=== PATIENT | male | born 1955 | race Caucasian/White ===

== ENCOUNTER → 2017-01-29 | Outpatient (CLI) | payer OTHER ==
[~2017-01-29] MED LIST: ALBUTEROL2.5 MG/31 INH; ALEVE220 MG PO; BACTRIM DS TAB1 EACH PO; BYSTOLIC 5 MG5 M1 PO; BYSTOLIC10 MG PO; CIPRO500 MG PO; CIPROFLOXACIN500 M1 PO; COUMADIN 4 MG TA4 M1 PO; CRESTOR40 MG PO; CRESTOR5 MG; FLAGYL500 MG PO; FLOMAX0.4 MG PO; HYDROCHLOROTHIA25 M1 PO; KEFLEX500 MG PO; LISINOPRIL40 MG PO; METOPROLOL SUCC25 M1 PO; NEXIUM 40 MG CA40 M1 PO; NORCO 5-325 TA1 EACH PO; ONDANSETRON HCL4 M2 PO; PERCOCET 5-3251 EACH PO; PHENERGAN 25 MG25 M1 PO; PREDNISONE 20 M20 MG PO; TAMSULOSIN HCL0.4 M1 PO; TOPROL XL50 MG PO; TRAMADOL 50 MG50 MG PO; TRIBENZOR 40-51 EACH PO; TRIBENZOR PO; ZESTRIL2.5 MG; ZOFRAN ODT4 MG PO
== END ==
LOC: ULTRA 10:26
DX: M79.89 Other specified soft tissue disorders (principal); M79.604 Pain in right leg

== ENCOUNTER 2019-02-06 08:09 | Emergency (ER) | payer OTHER ==
[~2019-02-06] VITALS: Ht 188 cm; Wt 117.9 kg
[2019-02-06 08:25] LABS: URINE BILIRUBIN NEGATIVE (Negative); URINE BLOOD 3+ (Negative); URINE COLOR YELLOW; URINE GLUCOSE-RANDOM* NEGATIVE (Negative); URINE KETONES NEGATIVE (Negative); URINE NITRITE-REFLEX NEGATIVE (Negative); URINE PROTEIN (DIPSTICK) 2+ (Negative); URINE SPECIFIC GRAVITY 1.025 (1.005-1.035); URINE UROBILINOGEN 0.2 E.U./dl (0.2-1.0)
[2019-02-06 08:29] LABS: URINE CLARITY HAZY; URINE LEUKOCYTES-REFLEX 2+ (Negative)
[2019-02-06 08:34] LABS: SQUAMOUS None Seen /LPF (0-3); URINE RBC >20 Many /HPF (0-2); URINE WBC-REFLEX >25 Many /HPF (0-5)
[2019-02-06 08:35] LABS: BACTERIA-REFLEX 1-9 Few /HPF (None Seen); CASTS None Seen /LPF (None Seen); CRYSTALS None Seen /LPF (None Seen)
[2019-02-06 09:05] LABS: ABSOLUTE NEUTROPHILS 8.2 thou/uL (1.4-8.2); BASOPHILS 0.5 % (0.0-2.0); EOSINOPHILS 0.6 % (0.0-3.0); HEMATOCRIT 47.3 % (42.0-52.0); HEMOGLOBIN 16.3 gm/dL (14.0-18.0); LYMPHOCYTES 13.5 % (24.0-44.0); MCH 30.4 pg (26.0-34.0); MCHC 34.3 g/dL (28.0-37.0); MCV 88.5 fL (80.0-100.0); PLATELET COUNT 187 thou/uL (150-400); POLYS 79.4 % (36.0-66.0); RBC 5.35 mil/uL (4.50-6.00); RDW 13.9 % (10.5-14.5); WBC 10.4 thou/uL (4.0-11.0)
[2019-02-06 09:19] LABS: CALCIUM 9.1 mg/dL (8.5-10.1); POTASSIUM 4.2 mmol/L (3.5-5.1)
[2019-02-06 09:25] LABS: ALBUMIN 3.2 g/dL (3.4-5.0); DIRECT BILIRUBIN 0.1 mg/dL (<0.1-0.3); TOTAL BILIRUBIN 0.6 mg/dL (<0.1-1.0); TOTAL PROTEIN 6.7 g/dL (6.4-8.2)
[2019-02-06] MEDS ORDERED: CIPROFLOXACIN500 M1 PO (09:39)
[2019-02-06 10:00] VITALS: BP 157/82
== END 2019-02-06 10:01 | disposition home or self-care (01) ==
LOC: ER 08:09
PROVIDERS: Emergency Medicine
DX: N39.0 Urinary tract infection, site not specified (principal); I10 Essential (primary) hypertension; E78.5 Hyperlipidemia, unspecified; Z98.890 Other specified postprocedural states; Z86.711 Personal history of pulmonary embolism; Z88.5 Allergy status to narcotic agent; Z88.0 Allergy status to penicillin; Z90.49 Acquired absence of other specified parts of digestive tract

== ENCOUNTER 2019-02-08 10:14 | Emergency (ER) | payer OTHER ==
[~2019-02-08] VITALS: Ht 188 cm; Wt 120.2 kg
[2019-02-08 10:38] LABS: URINE BILIRUBIN NEGATIVE (Negative); URINE BLOOD 3+ (Negative); URINE CLARITY SL CLOUDY; URINE COLOR YELLOW; URINE GLUCOSE-RANDOM* NEGATIVE (Negative); URINE KETONES NEGATIVE (Negative); URINE NITRITE-REFLEX NEGATIVE (Negative); URINE PROTEIN (DIPSTICK) TRACE (Negative); URINE UROBILINOGEN 0.2 E.U./dl (0.2-1.0)
[2019-02-08 10:40] LABS: ABSOLUTE NEUTROPHILS 6.1 thou/uL (1.4-8.2); BASOPHILS 0.7 % (0.0-2.0); EOSINOPHILS 0.6 % (0.0-3.0); HEMATOCRIT 49.2 % (42.0-52.0); HEMOGLOBIN 16.8 gm/dL (14.0-18.0); LYMPHOCYTES 19.2 % (24.0-44.0); MCH 30.2 pg (26.0-34.0); MCHC 34.1 g/dL (28.0-37.0); MCV 88.8 fL (80.0-100.0); MONOCYTES 6.9 % (1.0-8.0); PLATELET COUNT 229 thou/uL (150-400); POLYS 72.6 % (36.0-66.0); RBC 5.54 mil/uL (4.50-6.00); RDW 14.2 % (10.5-14.5); WBC 8.4 thou/uL (4.0-11.0)
[2019-02-08 10:43] LABS: CALCIUM 9.4 mg/dL (8.5-10.1); CREATININE 1.1 mg/dL (0.7-1.3); POTASSIUM 3.9 mmol/L (3.5-5.1)
[2019-02-08 10:50] LABS: ALBUMIN 3.7 g/dL (3.4-5.0); DIRECT BILIRUBIN 0.2 mg/dL (<0.1-0.3); TOTAL BILIRUBIN 1.2 mg/dL (<0.1-1.0); TOTAL PROTEIN 7.2 g/dL (6.4-8.2)
[2019-02-08 10:51] LABS: URINE LEUKOCYTES-REFLEX 1+ (Negative)
[2019-02-08 10:56] LABS: CASTS None Seen /LPF (None Seen); MUCUS 0-3 Light strn/LPF (None Seen); SQUAMOUS 4-10 Moderate /LPF (0-3); URINE RBC >20 Many /HPF (0-2)
[2019-02-08 10:59] LABS: BACTERIA-REFLEX 1-9 Few /HPF (None Seen)
[2019-02-08 11:00] LABS: CRYSTALS None Seen /LPF (None Seen); WBC CLUMPS Few (None Seen)
[2019-02-08] MEDS ORDERED: NORCO 5-325 TA1 EACH PO (12:07)
[2019-02-08] MEDS ORDERED: KEFLEX500 M1 PO (12:07)
[2019-02-08 12:23] VITALS: BP 144/91
== END 2019-02-08 12:57 | disposition home or self-care (01) ==
LOC: ER 10:14
PROVIDERS: Emergency Medicine
DX: N39.0 Urinary tract infection, site not specified (principal); I10 Essential (primary) hypertension; E78.5 Hyperlipidemia, unspecified; G62.9 Polyneuropathy, unspecified; Z88.0 Allergy status to penicillin; Z88.5 Allergy status to narcotic agent; Z98.890 Other specified postprocedural states; Z90.49 Acquired absence of other specified parts of digestive tract; Z86.711 Personal history of pulmonary embolism

== ENCOUNTER 2019-05-14 15:46 | Inpatient (IN) | payer OTHER ==
[~2019-05-14] VITALS: Ht 188 cm; Wt 117.9 kg
[~2019-05-14 15:46] MED LIST changes: +KEFLEX500 M1 PO
[2019-05-14 16:05] VITALS: BP 118/73
[2019-05-14 16:54] LABS: ABSOLUTE NEUTROPHILS 14.3 thou/uL (1.4-8.2); BASOPHILS 0.4 % (0.0-2.0); EOSINOPHILS 0.1 % (0.0-3.0); HEMATOCRIT 42.4 % (42.0-52.0); HEMOGLOBIN 14.6 gm/dL (14.0-18.0); LYMPHOCYTES 3.1 % (24.0-44.0); MCH 31.6 pg (26.0-34.0); MCHC 34.4 g/dL (28.0-37.0); MCV 91.8 fL (80.0-100.0); MONOCYTES 3.7 % (1.0-8.0); PLATELET COUNT 183 thou/uL (150-400); POLYS 92.7 % (36.0-66.0); RBC 4.62 mil/uL (4.50-6.00); RDW 14.3 % (10.5-14.5); WBC 15.4 thou/uL (4.0-11.0)
[2019-05-14 16:57] LABS: ANION GAP 11 mmol/L (7-16); BUN 16 mg/dL (7-18); CALCIUM 9.2 mg/dL (8.5-10.1); CHLORIDE 98 mmol/L (98-107); CO2 27 mmol/L (21-32); CREATININE 1.3 mg/dL (0.7-1.3); GLUCOSE 152 mg/dL (74-106); POTASSIUM 3.3 mmol/L (3.5-5.1); SODIUM 136 mmol/L (136-145)
[2019-05-14 17:06] LABS: TROPONIN-I <0.06 ng/mL (<0.06)
[2019-05-14 17:44] LABS: URINE BILIRUBIN NEGATIVE (Negative); URINE BLOOD 3+ (Negative); URINE COLOR YELLOW; URINE GLUCOSE-RANDOM* NEGATIVE (Negative); URINE KETONES NEGATIVE (Negative); URINE LEUKOCYTES-REFLEX 1+ (Negative); URINE PROTEIN (DIPSTICK) 1+ (Negative); URINE UROBILINOGEN 0.2 E.U./dl (0.2-1.0)
[2019-05-14 17:45] LABS: URINE CLARITY HAZY
[2019-05-14 17:46] LABS: SQUAMOUS None Seen /LPF (0-3); URINE WBC-REFLEX >25 Many /HPF (0-5)
[2019-05-14 17:47] LABS: BACTERIA-REFLEX 1-9 Few /HPF (None Seen); URINE RBC 3-10 Few /HPF (0-2)
[2019-05-14 17:48] LABS: CRYSTALS None Seen /LPF (None Seen)
[2019-05-14] MEDS ORDERED: OLMESARTAN-HCT1 EAC2 PO (18:31)
[2019-05-14] MEDS ORDERED: AMLODIPINE BESY10 MG PO (18:31)
[2019-05-14] MEDS ORDERED: XARELTO15 MG PO (18:32)
[2019-05-14 19:18] VITALS: BP 112/72; BP 96/38
[2019-05-14 20:27] VITALS: BP 96/38
[2019-05-14 21:52] VITALS: BP 128/58
--- NOTE | 2019-05-14 21:56 | NUR ---
VASCULAR ACCESS NOTE ORDER FOR PICC LINE. PATIENT CONSENTED FOR PROCEDURE. DL PICC PLACED TO R BASILIC VEIN PER HOSPITAL P&P R BASILIC VEIN WIDELY PATENT WITH U.S VISUALIZATION. LIDOCAINE 3ML OF 1% GIVEN SUB Q. VEIN ACCESSED WITH ONE STICK. GUIDEWIRE ADVANCED EASILY. VEIN DILATED. GUIDEWIRE REMOVED INTACT. 44CM DL PICC ADVANCED TO 44CM INTERNAL. BOTH LUMENS FLUSH AND DRAW EASILY. CXR VERIFICATION OF PLACEMENT. LINE RELEASED FOR IMMEDIATE USE TO RN. PATIENT TOLERATED PROCEDURE WELL.
[2019-05-15 00:52] VITALS: BP 135/60
--- NOTE | 2019-05-15 01:35 | NUR ---
PT ADMITTED TO ROOM 201 FROM ER, SPOUSE AT BEDSIDE, PICC LINE PLACED IN R UPPER ARM, VSS, NO FEVER, FLUIDS INFUSING AND K+ REPLACED WITH IVPB, PRN PAIN MED GIVEN FOR C/O GENERALIZED ACHYNESS, SCDS PLACED ON PT, RESTING QUIETLY IN ROOM, WILL CON'T TO MONITOR PER PPOC.
[2019-05-15 04:22] VITALS: BP 113/62
[2019-05-15 06:20] LABS: HEMATOCRIT 29.8 % (42.0-52.0); MCH 32.5 pg (26.0-34.0); MCHC 35.3 g/dL (28.0-37.0); MCV 92.1 fL (80.0-100.0); RBC 3.24 mil/uL (4.50-6.00); RDW 13.9 % (10.5-14.5); WBC 8.6 thou/uL (4.0-11.0)
[2019-05-15 06:27] LABS: CREATININE 0.9 mg/dL (0.7-1.3); MAGNESIUM 1.1 mg/dL (1.8-2.4)
[2019-05-15 06:35] LABS: HEMOGLOBIN 10.5 gm/dL (14.0-18.0)
[2019-05-15 06:38] LABS: CALCIUM 6.1 mg/dL (8.5-10.1)
[2019-05-15 06:39] LABS: POTASSIUM 2.9 mmol/L (3.5-5.1)
[2019-05-15 07:31] VITALS: BP 134/67
--- NOTE | 2019-05-15 10:55 | EKG ---
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 : 1955 Requested By: Keo Brand Order Number: [id number] MD: Guicho Hoffmann Measurements Intervals [place] Rate: 118 P: 70 [place]: 148 QRS: 27 QRSD: 102 T: 91 QT: 311 QTc: 436 Interpretive Statements Sinus tachycardia Probable left atrial enlargement Minimal ST depression Compared to ECG 02/24/2016 19:16:58 ST (T wave) deviation now present Sinus rhythm no longer present Electronically Signed On 05-15-2019 10:54:47 CDT by Guicho Hoffmann [email or web address] <ELECTRONICALLY SIGNED> By: Guicho Hoffmann MD 05/15/19 1054 1552 155 Guicho Hoffmann MD /DANE
[2019-05-15 13:47] VITALS: BP 137/74
[2019-05-15 17:20] LABS: HEMATOCRIT 34.8 % (42.0-52.0); MCH 31.7 pg (26.0-34.0); MCHC 34.3 g/dL (28.0-37.0); MCV 92.4 fL (80.0-100.0); RBC 3.77 mil/uL (4.50-6.00); RDW 14.3 % (10.5-14.5); WBC 9.1 thou/uL (4.0-11.0)
[2019-05-15 17:32] LABS: CREATININE 1.1 mg/dL (0.7-1.3); MAGNESIUM 1.9 mg/dL (1.8-2.4)
[2019-05-15 17:33] LABS: CALCIUM 8.2 mg/dL (8.5-10.1)
[2019-05-15 17:34] LABS: POTASSIUM 3.9 mmol/L (3.5-5.1)
--- NOTE | 2019-05-15 17:50 | NUR ---
ASSUMED CARE PT AT SHIFT CHANGE. ASSESSMENTS CHARTED. MEDS GIVEN PER DEC. PT ALERT AND ORIENTED, VSS, C/O HEADACHE PAIN, PAIN WHILE URINATING. MANAGED WITH PO PAIN MEDS. BLOOD NOTED UPON URINATION- PHYSICIAN NOTIFIED. ORDERS RECEIVED. CT SCAN DONE-REFER TO RESULTS. PT UP X1 ASSIST TOLERATING WELL, DENIES SOB, CHEST PAIN. APPETITE ADEQUATE. PLAN IS FOR PT TO TRANSFER TO - INFO FAXED OVER, RADIOLOGY NOTIFIED TO SEND OVER IMAGING. PT CURRENTLY RESTING IN BED, FAMILY AT BEDSIDE. DENIES NEEDS AT THIS TIME. WILL CONT TO MONITOR AND FOLLOW POC.
[2019-05-15 17:55] VITALS: BP 139/75
[2019-05-15 19:40] VITALS: BP 116/68
--- NOTE | 2019-05-15 21:03 | NUR ---
2030 REPORT HAS BEEN CALLED TO [facility] BY PREVIOUS SHIFT. I SPOKE TO TRANSFER CENTER ABOUT POSSIBLE ETA TO [facility]. GIVEN TYLENOL FOR TEMP 100.2 F. IVF TO GRAVITY DRIP THRU PICC LINE. HYPOTENSION SINCE ADMIT, IVF CONTINUED TO REDUCE RECURRING EPISODE. HERE AT TIME OF DISCHARGE. TRANSPORTED VIA EMS.
== END 2019-05-15 20:30 | disposition short-term general hospital (02) | DRG 872 ==
LOC: ER 15:46 → EROBS 18:21 → 2N 20:46
PROVIDERS: Emergency Medicine; Nurse Practitioner Acute Care; ADMIT Internal Medicine
PROC: 02HV33Z Insertion of Infusion Device into Superior Vena Cava, Percutaneous Approach (ICD-10-PCS; principal; 2019-05-14)
PROC: B548ZZA Ultrasonography of Superior Vena Cava, Guidance (ICD-10-PCS; principal; 2019-05-14)
DX: A41.9 Sepsis, unspecified organism (principal); N39.0 Urinary tract infection, site not specified; D62 Acute posthemorrhagic anemia; I10 Essential (primary) hypertension; R65.20 Severe sepsis without septic shock; E78.5 Hyperlipidemia, unspecified; G62.9 Polyneuropathy, unspecified; I48.2 Chronic atrial fibrillation; I95.9 Hypotension, unspecified; E87.6 Hypokalemia; R31.9 Hematuria, unspecified; E83.42 Hypomagnesemia; Z98.52 Vasectomy status; Z90.49 Acquired absence of other specified parts of digestive tract; Z86.711 Personal history of pulmonary embolism; Z88.6 Allergy status to analgesic agent; Z88.0 Allergy status to penicillin; Z85.51 Personal history of malignant neoplasm of bladder; Z95.828 Presence of other vascular implants and grafts; Z87.442 Personal history of urinary calculi; Z80.6 Family history of leukemia; Z79.899 Other long term (current) drug therapy
CPT/HCPCS: 10081; 27000

== ENCOUNTER 2019-05-27 16:20 | Emergency (ER) | payer OTHER ==
[~2019-05-27] VITALS: Ht 188 cm; Wt 117.0 kg
[~2019-05-27 16:20] MED LIST changes: +AMLODIPINE BESY10 MG PO; +OLMESARTAN-HCT1 EAC2 PO; +XARELTO15 MG PO
[2019-05-27 16:55] LABS: ABSOLUTE NEUTROPHILS 8.6 thou/uL (1.4-8.2); BASOPHILS 0.9 % (0.0-2.0); EOSINOPHILS 0.5 % (0.0-3.0); HEMATOCRIT 39.7 % (42.0-52.0); HEMOGLOBIN 13.7 gm/dL (14.0-18.0); LYMPHOCYTES 13.6 % (24.0-44.0); MCH 31.5 pg (26.0-34.0); MCHC 34.4 g/dL (28.0-37.0); MCV 91.6 fL (80.0-100.0); MONOCYTES 5.1 % (1.0-8.0); PLATELET COUNT 332 thou/uL (150-400); POLYS 79.9 % (36.0-66.0); RBC 4.34 mil/uL (4.50-6.00); WBC 10.8 thou/uL (4.0-11.0)
[2019-05-27 17:03] LABS: ANION GAP 11 mmol/L (7-16); BUN 27 mg/dL (7-18); CALCIUM 8.8 mg/dL (8.5-10.1); CHLORIDE 105 mmol/L (98-107); CO2 26 mmol/L (21-32); CREATININE 1.3 mg/dL (0.7-1.3); GLUCOSE 149 mg/dL (74-106); POTASSIUM 3.5 mmol/L (3.5-5.1); SODIUM 142 mmol/L (136-145)
[2019-05-27 17:14] LABS: MAGNESIUM 1.9 mg/dL (1.8-2.4); SGOT 18 U/L (15-37); SGPT 18 U/L (30-65); TOTAL BILIRUBIN 0.6 mg/dL (<0.1-1.0); TOTAL PROTEIN 6.5 g/dL (6.4-8.2); TROPONIN-I <0.06 ng/mL (<0.06)
[2019-05-27 18:26] LABS: APTT 33.2 Seconds (24.5-32.8); INR 1.2; PROTIME 12.5 Seconds (9.3-11.4)
[2019-05-27 19:18] VITALS: BP 100/64
--- NOTE | 2019-05-28 14:06 | EKG ---
[place] [address] [address] [facility] [place] [address] ELECTROCARDIOGRAM REPORT Name: MANDEEP YE [id number] Admission: 05/27/19 Attend Phys: Discharge: 05/27/19 Date of : 51 Report #: [id number] THIS REPORT FOR: //name// [facility] ED Test Date: 2019-05-27 Test Time: 16:29:25 Pat Name: MANDEEP YE Department: Room: Gender: Angle Bender: [facility] : 1955 Requested By: Arcadio Kuo Order Number: [id number] MD: Kole Barnard Measurements Intervals [place] Rate: 99 P: [place]: QRS: 27 QRSD: 103 T: 39 QT: 382 QTc: 491 Interpretive Statements Atrial fibrillation Borderline prolonged QT interval Compared to ECG 05/14/2019 15:52:18 Sinus tachycardia no longer present Electronically Signed On 05-28-2019 14:06:39 CDT by Kole Barnard [email or web address] <ELECTRONICALLY SIGNED> By: Kole Barnard MD, [facility] 05/28/19 1406 1629 1629 Kole Barnard MD, FACC /EPI
== END 2019-05-27 19:18 | disposition home or self-care (01) ==
LOC: ER 16:20
PROVIDERS: Emergency Medicine
DX: R55 Syncope and collapse (principal); E86.0 Dehydration; I48.91 Unspecified atrial fibrillation; I10 Essential (primary) hypertension; E78.5 Hyperlipidemia, unspecified; Z90.49 Acquired absence of other specified parts of digestive tract; Z86.711 Personal history of pulmonary embolism; Z88.6 Allergy status to analgesic agent; Z88.0 Allergy status to penicillin

== ENCOUNTER 2019-06-10 00:45 | Emergency (ER) | payer OTHER ==
[~2019-06-10] VITALS: Ht 188 cm; Wt 117.9 kg
[2019-06-10 00:46] VITALS: BP 113/75
[2019-06-10] MEDS ORDERED: MEDROLDOSEPACK PO (01:18)
[2019-06-10] MEDS ORDERED: DIPHENHIST50 MG PO (01:18)
== END 2019-06-10 01:42 | disposition home or self-care (01) ==
LOC: ER 00:45
DX: L20.9 Atopic dermatitis, unspecified (principal); I10 Essential (primary) hypertension; E78.5 Hyperlipidemia, unspecified; Z88.5 Allergy status to narcotic agent; Z88.0 Allergy status to penicillin; Z90.89 Acquired absence of other organs; Z98.52 Vasectomy status; Z90.49 Acquired absence of other specified parts of digestive tract; Z85.51 Personal history of malignant neoplasm of bladder

== ENCOUNTER → 2019-07-13 | Outpatient (CLI) | payer OTHER ==
[~2019-07-13] VITALS: Ht 188 cm; Wt 117.9 kg
[~2019-07-13] MED LIST changes: +DIPHENHIST50 MG PO; +FLECAINIDE ACET50 M1 PO; +LEVAQUIN 750 M750 MG PO; +MEDROLDOSEPACK PO; +NORCO 5-325 TA1 EAC1 PO; +ONDANSETRON ODT8 MG PO; +TAMBOCOR 100 M100 M1 PO; +XARELTO20 MG PO
[2019-07-13 07:38] VITALS: BP 120/64
--- NOTE | 2019-07-13 08:42 | TEE ---
[facility] [address] [employer] [address] TRANSESOPHAGEAL ECHOCARDIOGRAM Name: MANDEEP YE Room #: REG CL KeenanKeenan#: [id number] Admission: 07/13/19 Attend Phys: Kole Barnard, Discharge: Date of : 51 Report #: [id number] THIS REPORT FOR: //name// APPROVED REPORT Study performed: 07/13/2019 08:08:30 EXAM: Comprehensive 2D, Doppler, and color-flow Echocardiogram Patient Location: Out-Patient Room #: 9 Status: routine BSA: 2.43 HR: 67 bpm BP: 125/73 mmHg Rhythm: NSR Other Information Study Quality: Excellent Indications Atrial Fibrillation Echo Enhancing Agent Indication: Rule out Shunt Agent(s) / Amount(s) Used: Agitated Saline 7 cc Procedure After obtaining informed consent, patient underwent transesophageal echo in the [employer]. Type of Sedation : Conscious Sedation Sedation was administered by Karla Joiner RN. Sedation was achieved intravenously with: Versed (3 mg) Fentanyl (50 mcg) Transesophageal probe was inserted and advanced into esophagus without difficulty by Kole Barnard MD. Echo enhancement indication: R/O Septal defect. Echo enhancement agent administered: Agitated Saline The HI was performed without complications. Throughout the procedure, the blood pressure, pulse oximetry, cardiac rhythm, and rate were monitored. The patient tolerated the procedure without adverse effects. Recovery from conscious sedation was uneventful and vital signs were stable. [facility] [address] [place] [address] TRANSESOPHAGEAL ECHOCARDIOGRAM Name: MANDEEP YE Room #: REG CL [facility].#: [id number] Admission: 07/13/19 Attend Phys: Kole Barnard, Discharge: Date of : 51 Report #: [id number] Left Ventricle The left ventricle is normal size. There is normal LV segmental wall motion. There is normal left ventricular wall thickness. The left ventricular systolic function is normal. The left ventricular ejection fraction is within the normal range. LVEF is 55-60%. Right Ventricle The right ventricle is normal size. The right ventricular systolic function is normal. Atria Left atrium is dilated. No thrombus is visualized in the left atrium or appendage. No shunting by contrast bubble injection The right atrium size is normal. Aortic Valve Aortic valve is trileaflet, minimally calcified noncoronary cusp leaflet. No aortic regurgitation is present. There is no aortic valvular stenosis. Mitral Valve The mitral valve is normal in structure. Mild mitral regurgitation. No evidence of mitral valve stenosis. Tricuspid Valve The tricuspid valve is normal in structure. Mild tricuspid regurgitation. Pulmonic Valve The pulmonary valve is normal in structure. There is no pulmonic valvular regurgitation. Great Vessels The aortic root is normal in size. Mild aortic atherosclerosis. IVC is normal in size and collapses >50% with inspiration. Pericardium There is no pericardial effusion. <Conclusion> The left ventricular systolic function is normal. There is normal LV segmental wall motion. LVEF is 55-60%. Left atrium is dilated. No thrombus in the left atrium or appendage. [facility] [address] [place] [address] TRANSESOPHAGEAL ECHOCARDIOGRAM Name: EPHRAIMMANDEEP GAY Room #: REG CL Vasiliy#: [id number] Admission: 07/13/19 Attend Phys: Kole Barnard, Discharge: Date of : 51 Report #: [id number] No shunting by contrast bubble injection Aortic valve is trileaflet, minimally calcified noncoronary cusp leaflet. No aortic regurgitation or stenosis. The mitral valve is normal in structure. Mild mitral regurgitation. Mild aortic atherosclerosis. No pericardial effusion. <ELECTRONICALLY SIGNED> By: Kole Barnard MD, FACC 07/13/1942 1 1 Kole Barnard MD, FACC /INF
--- NOTE | 2019-07-13 08:43 | NUR ---
PT AWAKE AND ALERT. VSS. NSR. AT BEDSIDE. CONT TO MONITOR POST HI.
== END | disposition home or self-care (01) ==
LOC: CATH 06:54
DX: I48.91 Unspecified atrial fibrillation (principal); I70.0 Atherosclerosis of aorta; I34.0 Nonrheumatic mitral (valve) insufficiency; I10 Essential (primary) hypertension; E78.5 Hyperlipidemia, unspecified; G62.9 Polyneuropathy, unspecified; I48.0 Paroxysmal atrial fibrillation; E66.09 Other obesity due to excess calories; Z98.890 Other specified postprocedural states; Z98.52 Vasectomy status; Z90.49 Acquired absence of other specified parts of digestive tract; Z86.711 Personal history of pulmonary embolism; Z79.01 Long term (current) use of anticoagulants; Z85.51 Personal history of malignant neoplasm of bladder; Z87.442 Personal history of urinary calculi; Z88.0 Allergy status to penicillin; Z88.6 Allergy status to analgesic agent; Z79.899 Other long term (current) drug therapy

== ENCOUNTER → 2019-07-27 | Outpatient (CLI) | payer OTHER ==
[2019-07-27 09:03] LABS: HEMATOCRIT 45.1 % (42.0-52.0); HEMOGLOBIN 15.3 gm/dL (14.0-18.0); MCH 31.3 pg (26.0-34.0); MCHC 33.8 g/dL (28.0-37.0); MCV 92.6 fL (80.0-100.0); RBC 4.88 mil/uL (4.50-6.00); RDW 13.5 % (10.5-14.5); WBC 6.8 thou/uL (4.0-11.0)
[2019-07-27 09:14] LABS: CALCIUM 9.1 mg/dL (8.5-10.1); CREATININE 1.2 mg/dL (0.7-1.3); POTASSIUM 4.2 mmol/L (3.5-5.1)
[2019-07-27 09:21] LABS: ALBUMIN 3.5 g/dL (3.4-5.0); TOTAL BILIRUBIN 0.7 mg/dL (<0.1-1.0); TOTAL PROTEIN 6.6 g/dL (6.4-8.2)
== END ==
LOC: CAT 08:31
PROVIDERS: Internal Medicine Cardiovascular Disease
DX: I48.91 Unspecified atrial fibrillation (principal); I25.10 Atherosclerotic heart disease of native coronary artery without angina pectoris; N28.1 Cyst of kidney, acquired; M47.814 Spondylosis without myelopathy or radiculopathy, thoracic region; K76.9 Liver disease, unspecified

== ENCOUNTER 2019-07-29 06:18 | Emergency (ER) | payer OTHER ==
[~2019-07-29] VITALS: Ht 188 cm; Wt 117.9 kg
[~2019-07-29 06:18] MED LIST changes: -BYSTOLIC10 MG PO; -NORCO 5-325 TA1 EAC1 PO; -ONDANSETRON ODT8 MG PO; -TAMBOCOR 100 M100 M1 PO
[2019-07-29 07:10] LABS: URINE BILIRUBIN NEGATIVE (Negative); URINE BLOOD 3+ (Negative); URINE COLOR YELLOW; URINE GLUCOSE-RANDOM* NEGATIVE (Negative); URINE KETONES NEGATIVE (Negative); URINE LEUKOCYTES-REFLEX NEGATIVE (Negative); URINE NITRITE-REFLEX NEGATIVE (Negative); URINE PROTEIN (DIPSTICK) NEGATIVE (Negative); URINE UROBILINOGEN 0.2 E.U./dl (0.2-1.0)
[2019-07-29 07:11] LABS: URINE CLARITY HAZY
[2019-07-29 07:20] LABS: SQUAMOUS 4-10 Moderate /LPF (0-3)
[2019-07-29 07:20] LABS: ABSOLUTE NEUTROPHILS 7.3 thou/uL (1.4-8.2); BASOPHILS 0.5 % (0.0-2.0); EOSINOPHILS 0.6 % (0.0-3.0); HEMATOCRIT 46.3 % (42.0-52.0); HEMOGLOBIN 15.6 gm/dL (14.0-18.0); LYMPHOCYTES 16.6 % (24.0-44.0); MCH 31.1 pg (26.0-34.0); MCHC 33.6 g/dL (28.0-37.0); MCV 92.6 fL (80.0-100.0); MONOCYTES 5.4 % (1.0-8.0); PLATELET COUNT 232 thou/uL (150-400); POLYS 76.9 % (36.0-66.0); RDW 13.8 % (10.5-14.5); WBC 9.5 thou/uL (4.0-11.0)
[2019-07-29 07:21] LABS: BACTERIA-REFLEX 1-9 Few /HPF (None Seen); CASTS None Seen /LPF (None Seen); CRYSTALS None Seen /LPF (None Seen); URINE RBC >20 Many /HPF (0-2); URINE WBC-REFLEX 0-5 Rare /HPF (0-5)
[2019-07-29 07:31] LABS: ANION GAP 8 mmol/L (7-16); BUN 16 mg/dL (7-18); CALCIUM 9.2 mg/dL (8.5-10.1); CHLORIDE 101 mmol/L (98-107); CO2 31 mmol/L (21-32); CREATININE 1.3 mg/dL (0.7-1.3); GLUCOSE 118 mg/dL (74-106); POTASSIUM 3.9 mmol/L (3.5-5.1); SODIUM 140 mmol/L (136-145)
[2019-07-29 07:34] LABS: APTT 37.3 Seconds (24.5-32.8); INR 1.2; PROTIME 12.7 Seconds (9.3-11.4)
[2019-07-29 07:41] LABS: ALBUMIN 3.6 g/dL (3.4-5.0); LIPASE 114 U/L (73-393); SGOT 14 U/L (15-37); SGPT 15 U/L (30-65); TOTAL BILIRUBIN 0.8 mg/dL (<0.1-1.0); TOTAL PROTEIN 7.3 g/dL (6.4-8.2); TROPONIN-I <0.06 ng/mL (<0.06)
--- NOTE | 2019-07-29 07:52 | EKG ---
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1955 Requested By: Arcadio Kuo Order Number: [id number] MD: Dar Hutchins Measurements Intervals [place] Rate: 65 P: 64 [place]: 206 QRS: 25 QRSD: 121 T: 60 QT: 446 QTc: 464 Interpretive Statements Sinus rhythm Probable left atrial enlargement Nonspecific intraventricular conduction delay Compared to ECG 05/27/2019 16:29:25 Intraventricular conduction delay now present Atrial fibrillation no longer present Electronically Signed On 07-29-2019 7:51:52 CDT by Dar Hutchins [email or web address] <ELECTRONICALLY SIGNED> By: Dar Hutchins MD 07/29/19 0751 0715 4 Dar Hutchins MD /DANE
[2019-07-29] MEDS ORDERED: NORCO 5-325 TA1 EAC1 PO (08:58)
[2019-07-29] MEDS ORDERED: ONDANSETRON ODT8 MG PO (08:58)
[2019-07-29 09:32] VITALS: BP 117/66
== END 2019-07-29 09:17 | disposition home or self-care (01) ==
LOC: ER 06:18
PROVIDERS: Emergency Medicine
DX: N13.2 Hydronephrosis with renal and ureteral calculous obstruction (principal); I10 Essential (primary) hypertension; E78.5 Hyperlipidemia, unspecified; G62.9 Polyneuropathy, unspecified; E66.9 Obesity, unspecified; Z68.33 Body mass index [BMI] 33.0-33.9, adult; Z79.01 Long term (current) use of anticoagulants; Z90.89 Acquired absence of other organs; Z98.52 Vasectomy status; Z90.49 Acquired absence of other specified parts of digestive tract; Z86.711 Personal history of pulmonary embolism; Z87.442 Personal history of urinary calculi; Z88.0 Allergy status to penicillin; Z88.6 Allergy status to analgesic agent; Z88.8 Allergy status to other drugs, medicaments and biological substances

== ENCOUNTER 2019-08-06 06:30 | Observation (INO) | payer OTHER ==
[~2019-08-06] VITALS: Ht 188 cm; Wt 123.8 kg
[2019-08-06] VITALS (12 sets, daily range): BP systolic 92–145; BP diastolic 62–84
[~2019-08-06 06:30] MED LIST changes: +NORCO 5-325 TA1 EAC1 PO; +ONDANSETRON ODT8 MG PO
[2019-08-06 07:26] LABS: BASOPHILS 0.7 % (0.0-2.0); EOSINOPHILS 0.9 % (0.0-3.0); HEMATOCRIT 42.4 % (42.0-52.0); HEMOGLOBIN 14.2 gm/dL (14.0-18.0); LYMPHOCYTES 22.9 % (24.0-44.0); MCH 31.1 pg (26.0-34.0); MCHC 33.5 g/dL (28.0-37.0); MCV 92.9 fL (80.0-100.0); MONOCYTES 5.9 % (1.0-8.0); PLATELET COUNT 208 thou/uL (150-400); POLYS 69.6 % (36.0-66.0); RBC 4.57 mil/uL (4.50-6.00); RDW 13.8 % (10.5-14.5); WBC 7.1 thou/uL (4.0-11.0)
[2019-08-06 07:34] LABS: CALCIUM 9.2 mg/dL (8.5-10.1); POTASSIUM 3.8 mmol/L (3.5-5.1)
[2019-08-06 07:40] LABS: ALBUMIN 3.3 g/dL (3.4-5.0); APTT 25.9 Seconds (24.5-32.8); PROTIME 10.2 Seconds (9.3-11.4); TOTAL BILIRUBIN 0.6 mg/dL (<0.1-1.0); TOTAL PROTEIN 6.8 g/dL (6.4-8.2)
[2019-08-06] MEDS ORDERED: TAMBOCOR 100 M100 M1 PO (08:35)
--- NOTE | 2019-08-06 18:30 | NUR ---
PT ADMITED FROM [employer]PER[employer]. ADMISSION HX AND ASSESSMENT COMPLETED. VSS. RIGHT GROIN INCISION C/D/I. NO HEMATOMA NOTED. POST OP INSTRUCTIONS GIVEN. PT VERBERLISED UNDERSTANDING. NSR ON TELE. BEDREST FOR 6 HOURS. WILL CONTINUE TO MONITOR.
[2019-08-07] VITALS: BP 101/66
[2019-08-07 04:00] VITALS: BP 98/67
[2019-08-07 04:50] VITALS: BP 98/67
--- NOTE | 2019-08-07 06:26 | NUR ---
ASSESSMENT DOCUMENTED.PT BEEN RESTING IN NO ACUTE DISTRESS.S/P AFIB ABLATION.RIGHT GROIN W/O HEMATOMA OR ACTIVE BLEEDING.DRESSING CDI.VSS.ON RA W/O RESP DISTRESS.AMBULATED ON THE HALLWAY AFTER BEDREST,GAIT STEADY.DENIES ANY CONCERNS.DENIES NAUSEA OR EPEISODE OF VOMITING THIS SHIFT.C/O HEADACHE THAT WAS COMPLETELY RESOLVED WITH TYLENOL.FISH REMOVED PER PROTOCOL.GREAT UO.POC IS TO DISCHARGE THIS AM.
[2019-08-07 08:00] VITALS: BP 126/73
[2019-08-07] MEDS ORDERED: BYSTOLIC10 MG PO ×2 (08:19→08:22)
[2019-08-07 09:53] VITALS: BP 126/73
--- NOTE | 2019-08-07 11:43 | NUR ---
ASSUMED CARE PT AT SHIFT CHANGE. ASSESSMENT CHARTED. MEDS GIVEN PER DEC. PT ALERT AND ORIENTED, VSS, UP SBA TOLERATING WELL. RIGHT GROIN SITE CDI, NO HEMATOMA. RIGHT RADIAL SITE WITH BANDAID NO BLEED/HEMATOMA. PT STATES HE DID NOT RECEIVE CLOTHES AFTER PROCEDURE; CLOTHES FOUND UNDER CART BED IN RECOVERY. DC ORDERS ACKNOWLEDGED/IMPLEMENTED. DC PAPERWORK DISCUSSED WITH PT, COMMUNICATES UNDERSTANDING. IV REMOVED, TELE REMOVED, PT LEFT UNIT WITH ALL BELONGING ACCOMAPNIED BY SPOUSE.
--- NOTE | 2019-08-12 12:27 | P ---
[facility] [place] [address] PROCEDURE REPORT Name: MANDEEP YE [facility]P [facility] [id number] Admission: 08/06/19 Attend Phys: Dar Hutchins MD Discharge: 08/07/19 Date of : 51 Report #: [id number] THIS REPORT FOR: //name// CC: Dar Chen ATRIAL FIBRILLATION ABLATION PREOPERATIVE DIAGNOSIS: Atrial fibrillation. POSTOPERATIVE DIAGNOSIS: Atrial fibrillation. PROCEDURES PERFORMED: 1. Atrial fibrillation ablation, CPT code 53281. 2. 3D mapping, CPT code 60976. 3. Intracardiac echo, CPT code 33259. ANESTHESIA: The patient underwent general anesthesia with no anesthesia related complications. DESCRIPTION OF PROCEDURE: The patient underwent informed consent. We discussed the details of the procedure including the risks, which include but not limited to bleeding, vascular damage, cardiac perforation as well as stroke or MT. He understood these risks and is willing to proceed. The patient was brought to the EP laboratory in a fasting and sedated state, prepped and draped in a sterile fashion. Next, I injected lidocaine to the right groin region, obtained access to the right femoral vein x 3, placing an 8, 9 and 7-Cameroonian short sheath using the modified Seldinger technique. Next, a Decapolar catheter was placed easily in the coronary sinus and an ice catheter was placed into the right atrium. Using intracardiac ultrasound, I created a 3D geometry of the left atrium with evidence of a left superior and left inferior pulmonary vein as well as a right superior and right inferior pulmonary vein. There is also a large left atrial appendage. This was merged with the patient's cardiac CT scan. Next, the patient was systemically heparinized and a transseptal was performed using an SL1 sheath and [place] needle. Prior to ablation, the patient was in sinus rhythm with sinus cycle length of 1080 milliseconds, WA interval 175 milliseconds, QRS duration 105 milliseconds, QT interval 45 milliseconds. A transseptal was performed and once I crossed into the left atrium with a guidewire, the patient went into atrial fibrillation. I placed the guidewire into the left superior pulmonary vein and then exchanged the SL1 sheath for the cryo sheath and placed a Lasso catheter in the left atrium and created a detailed 3D geometry and voltage map of the left atrium. Next, I exchanged for the cryoablation balloon. I performed three 4-minute freezes within the left superior pulmonary vein and this vein isolated during the third freeze within 45 seconds. I then turned my attention to the left inferior pulmonary vein. This vein was in close proximity to the left superior [address] [address] PROCEDURE REPORT Name: MANDEEP YE Room #: 204-P [facility] Chelo M.RKeenan#: [id number] Admission: 08/06/19 Attend Phys: Dar Hutchins MD Discharge: 08/07/19 Date of : 51 Report #: [id number] pulmonary vein. I performed an initial 4-minute freeze with poor temps at only -29 degrees, which resulted in significant slowing, but not isolation of the vein. I performed a 4-minute freeze followed by a 5-minute freeze and again, he vein remained very slow, but was not completely isolated. Therefore, I performed a fourth freeze of 180 seconds duration, which I placed the balloon very inferiorly and almost not completely engaging the vessel. After this freeze, the vein was isolated. I then turned my attention to the right superior pulmonary vein. It was hard to see signals in this vessel during any of the freezes. I performed two 150 second freezes, came off early because attempts were cold and then performed a third freeze with more of an inferior deflection. Again, there were some small signals noted, but I could not tell if these were truly PV potentials or far field left atrial potentials. Therefore, we moved on to the right inferior pulmonary vein. I performed two 4-minute freezes and there was still connection of the vein. I therefore performed a third freeze in the lower branch of the right inferior pulmonary vein, which had 3-4 separate branches. After this freeze, the vein was isolated. The patient remained in atrial fibrillation. I then placed the Lasso catheter back into the left atrium and I interrogated both left-sided veins and then I went to the right-sided veins and while he was interrogated the right-sided veins, the patient did convert from AFib back to sinus rhythm. A detailed 3D voltage map post-ablation was created showing wide circumferential ablation of all the pulmonary veins and everything was clearly isolated. As such, the procedure was concluded. Intracardiac ultrasound was utilized to verify there was no pericardial effusion. The patient received systemic protamine and the sheaths were pulled and a figure of eight suture was deployed to the right groin. There were no procedure related complications. CONCLUSIONS: Successful AFib ablation with wide circumferential ablation of the pulmonary veins. <ELECTRONICALLY SIGNED> By: Dar Hutchins MD 08/12/19 1227 1538 0422 Dar Hutchins MD /nt
== END 2019-08-07 10:17 | disposition home or self-care (01) ==
LOC: CATH 06:30 → 2N 18:19
PROVIDERS: ADMIT Internal Medicine Cardiovascular Disease
DX: I48.0 Paroxysmal atrial fibrillation (principal); I10 Essential (primary) hypertension; Z86.718 Personal history of other venous thrombosis and embolism; Z86.711 Personal history of pulmonary embolism; Z79.899 Other long term (current) drug therapy; Z23 Encounter for immunization
CPT/HCPCS: 62110; 62900; 65020; 65040; 70005

== ENCOUNTER → 2019-08-18 | Outpatient (CLI) | payer OTHER ==
[~2019-08-18] MED LIST changes: +BYSTOLIC10 MG PO; +TAMBOCOR 100 M100 M1 PO
--- NOTE | 2019-08-18 14:50 | 2DMMODE ---
[address] [address] 2 D/M-MODE ECHOCARDIOGRAM Name: EPHRAIMMANDEEP DEIDRA Room #: REG CL Abdirahman#: [id number] Admission: 08/18/19 Attend Phys: Catherine Galvan Discharge: Date of : 51 Report #: [id number] THIS REPORT FOR: //name// APPROVED REPORT Study performed: 08/18/2019 13:57:07 EXAM: Comprehensive 2D, Doppler, and color-flow Echocardiogram Patient Location: Out-Patient Status: routine BSA: 2.39 HR: 76 bpm BP: 120/72 mmHg Rhythm: NSR Other Information Study Quality: Good Indications Abbreviated echo to rule out effusion post cardiac ablation. Chest pain. Left Ventricle The left ventricle is normal size. There is normal LV segmental wall motion. Left ventricular systolic function is normal. LVEF is 55-60%. Right Ventricle The right ventricle is normal size. The right ventricular systolic function is normal. Atria The left atrium size is normal. The right atrium size is normal. Aortic Valve The aortic valve is normal in structure; mildly calcified. Mitral Valve The mitral valve is normal in structure. Tricuspid Valve The tricuspid valve is normal in structure. [address] [address] 2 D/M-MODE ECHOCARDIOGRAM Name: MANDEEP YE Room #: REG CaitlynR.#: [id number] Admission: 08/18/19 Attend Phys: Catherine Galvan Discharge: Date of : 51 Report #: [id number] Pericardium There is no pericardial effusion. There is no pleural effusion. <Conclusion> The left ventricle is normal size. LVEF is 55-60%. The aortic valve is normal in structure; mildly calcified. The mitral valve is normal in structure. The tricuspid valve is normal in structure. There is no pericardial effusion. There is no pleural effusion. <ELECTRONICALLY SIGNED> By: Fredi Salazar MD 08/18/19 1450 1450 145 Fredi Salazar MD /INF
== END ==
LOC: CV 13:45
DX: I48.0 Paroxysmal atrial fibrillation (principal); Z88.0 Allergy status to penicillin

== ENCOUNTER 2019-09-30 08:26 | Emergency (ER) | payer OTHER ==
[~2019-09-30] VITALS: Ht 188 cm; Wt 120.2 kg
[2019-09-30 09:28] LABS: ABSOLUTE NEUTROPHILS 5.3 thou/uL (1.4-8.2); BASOPHILS 0.7 % (0.0-2.0); EOSINOPHILS 1.2 % (0.0-3.0); HEMATOCRIT 42.6 % (42.0-52.0); HEMOGLOBIN 14.5 gm/dL (14.0-18.0); LYMPHOCYTES 12.8 % (24.0-44.0); MCV 91.3 fL (80.0-100.0); PLATELET COUNT 178 thou/uL (150-400); POLYS 79.3 % (36.0-66.0); RBC 4.67 mil/uL (4.50-6.00); RDW 13.8 % (10.5-14.5); WBC 6.6 thou/uL (4.0-11.0)
[2019-09-30 09:33] LABS: ANION GAP 13 mmol/L (7-16); BUN 15 mg/dL (7-18); CALCIUM 9.4 mg/dL (8.5-10.1); CHLORIDE 100 mmol/L (98-107); CO2 25 mmol/L (21-32); CREATININE 1.4 mg/dL (0.7-1.3); GLUCOSE 145 mg/dL (74-106); POTASSIUM 3.2 mmol/L (3.5-5.1); SODIUM 138 mmol/L (136-145)
[2019-09-30 09:43] LABS: ALBUMIN 3.3 g/dL (3.4-5.0); SGOT 28 U/L (15-37); SGPT 27 U/L (30-65); TROPONIN-I <0.06 ng/mL (<0.06)
[2019-09-30 10:08] LABS: D-DIMER 0.43 ug/mLFEU (0.19-0.50); INR 1.1; PROTIME 10.8 Seconds (9.3-11.4)
[2019-09-30] MEDS ORDERED: KEFLEX500 M1 PO (11:11)
[2019-09-30 11:22] LABS: URINE BILIRUBIN NEGATIVE (Negative); URINE BLOOD TRACE (Negative); URINE CLARITY CLEAR; URINE COLOR YELLOW; URINE GLUCOSE-RANDOM* NEGATIVE (Negative); URINE KETONES NEGATIVE (Negative); URINE LEUKOCYTES-REFLEX NEGATIVE (Negative); URINE NITRITE-REFLEX NEGATIVE (Negative); URINE PROTEIN (DIPSTICK) TRACE (Negative); URINE UROBILINOGEN 0.2 E.U./dl (0.2-1.0)
[2019-09-30 11:51] VITALS: BP 113/66
--- NOTE | 2019-09-30 16:10 | EKG ---
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 : 1955 Requested By: Arcadio Kuo Order Number: [id number] MD: Dar Hutchins Measurements Intervals [place] Rate: 64 P: [place]: QRS: 55 QRSD: 117 T: 65 QT: 492 QTc: 508 Interpretive Statements Junctional rhythm Nonspecific intraventricular conduction delay Minimal ST depression, inferior leads Compared to ECG 07/29/2019 07:15:25 Junctional rhythm now present ST (T wave) deviation now present Sinus rhythm no longer present Electronically Signed On 09-30-2019 16:09:37 [employer]OR [employer] by Dar Hutchnis [email or web address] <ELECTRONICALLY SIGNED> By: Dar Hutchins MD 09/30/19 1609 Dar Hutchins MD /EPI
== END 2019-09-30 12:03 | disposition home or self-care (01) ==
LOC: ER 08:26
PROVIDERS: Emergency Medicine
DX: R07.9 Chest pain, unspecified (principal); R42 Dizziness and giddiness; I10 Essential (primary) hypertension; E78.5 Hyperlipidemia, unspecified; E66.9 Obesity, unspecified; G62.9 Polyneuropathy, unspecified; Z68.34 Body mass index [BMI] 34.0-34.9, adult; Z90.49 Acquired absence of other specified parts of digestive tract; Z85.51 Personal history of malignant neoplasm of bladder; Z98.52 Vasectomy status; Z88.0 Allergy status to penicillin; Z88.6 Allergy status to analgesic agent

== ENCOUNTER → 2020-01-04 | Outpatient (CLI) | payer OTHER | LOC: SJCVC 09:26 | DX: I48.0 Paroxysmal atrial fibrillation (principal); I10 Essential (primary) hypertension; K21.9 Gastro-esophageal reflux disease without esophagitis; E78.5 Hyperlipidemia, unspecified; G47.33 Obstructive sleep apnea (adult) (pediatric); Z79.899 Other long term (current) drug therapy; Z87.891 Personal history of nicotine dependence ==

== ENCOUNTER → 2020-01-10 | Outpatient (CLI) | payer OTHER ==
[2020-01-10 08:42] VITALS: BP 142/80
--- NOTE | 2020-01-10 10:11 | LINQ ---
[facility] [place] [address] LINQ PROCEDURE REPORT Name: MANDEEP YE Room #: REG HOWIE [place]ens.#: [id number] Admission: 01/10/20 Attend Phys: Dar Hutchins MD Discharge: Date of : 51 Report #: [id number] THIS REPORT FOR: cc: Elijah Chen Steven F. DO Lammoglia, Francisco J. MD ~ THIS REPORT FOR: //name// APPROVED REPORT Study performed: 01/10/2020 09:47:00 Patient Status: Out-Patient Room #: Event Personnel: Fredi Salazar MD Exam: Loop Recorder Insertion Indications: Afib The patient is a 64 year-old male with a history of symptomatically paroxysmal atrial fibrillation status post atrial fibrillation. Conscious Sedation Start time: End Time: 0 Implanted Devices: [employer]: Device: CONFIRM Rx; Reference #: [id number]; SN: [id number]; Use before: 2021-04-18 Procedure The patient underwent informed consent. We discussed the details of the procedure including the risks, which include, but not limited to bleeding, infection, vascular damage, cardiac perforation, and pneumothorax. After informed consent was obtained the patient was brought to the cardiac catheterization: Stable condition. Left chest was prepped and draped in usual sterile manner. Utilizing 1% lidocaine a skin wheal was raised. Assessment to this the proposed tract was anesthetized with 1% lidocaine without issues. A 11 blade with a utilized to make a small incision and using both sharp and blunt dissection a track was developed. The device was deployed utilizing the enclosed appointment total without difficulty. A small bleeder was hit and a [id number]-np-fughd stitch was placed around it as well as pressure and hemostasis was achieved. The subcutaneous tissue was then sewn over 2 simple interrupted sutures to obliterate the opening of the tract. Skin was closed with 30 absorbable suture in a running subcuticular [facility] [employer] [place] [address] 3C Plus PROCEDURE REPORT Name: MANDEEP YE Room #: REG CL [facility].#: [id number] Admission: 01/10/20 Attend Phys: Dar Hutchins Discharge: Date of : 51 Report #: [id number] stitch. No complications patient tolerated procedure well Findings Estimated Blood Loss: 5 mL Conclusion 1. Successful insertion of a [employer] implantable loop recorder Recommendations 1. Routine post loop recorder insertion protocol <ELECTRONICALLY SIGNED> By: Fredi Salazar MD 01/10/20 1010 1010 1010 Fredi Salazar MD /INF
== END ==
LOC: CATH 07:19
DX: I48.91 Unspecified atrial fibrillation (principal); Z87.440 Personal history of urinary (tract) infections

== ENCOUNTER → 2020-05-16 | Outpatient (CLI) | payer OTHER | LOC: CAT 07:43 | PROVIDERS: ATTEND Internal Medicine Cardiovascular Disease | DX: Z13.6 Encounter for screening for cardiovascular disorders (principal); I25.10 Atherosclerotic heart disease of native coronary artery without angina pectoris; E78.00 Pure hypercholesterolemia, unspecified ==

== ENCOUNTER → 2020-07-11 | Outpatient (CLI) | payer OTHER | LOC: SJCVC 08:44 | PROVIDERS: ATTEND Internal Medicine Cardiovascular Disease | DX: R07.89 Other chest pain (principal); I48.0 Paroxysmal atrial fibrillation; I10 Essential (primary) hypertension; E78.5 Hyperlipidemia, unspecified; K21.9 Gastro-esophageal reflux disease without esophagitis; G47.33 Obstructive sleep apnea (adult) (pediatric); Z79.899 Other long term (current) drug therapy ==

== ENCOUNTER 2020-07-19 18:51 | Emergency (ER) | payer OTHER ==
[~2020-07-19] VITALS: Ht 188 cm; Wt 117.9 kg
[2020-07-19 19:17] LABS: URINE BILIRUBIN NEGATIVE (Negative); URINE BLOOD 3+ (Negative); URINE GLUCOSE-RANDOM* NEGATIVE (Negative); URINE KETONES NEGATIVE (Negative); URINE NITRITE-REFLEX NEGATIVE (Negative); URINE PROTEIN (DIPSTICK) 3+ (Negative); URINE SPECIFIC GRAVITY 1.025 (1.005-1.035); URINE UROBILINOGEN 0.2 E.U./dl (0.2-1.0)
[2020-07-19 19:18] LABS: URINE LEUKOCYTES-REFLEX 2+ (Negative)
[2020-07-19 19:20] LABS: URINE WBC-REFLEX >25 Many /HPF (0-5)
[2020-07-19 19:21] LABS: BACTERIA-REFLEX 1-9 Few /HPF (None Seen); CASTS None Seen /LPF (None Seen); CRYSTALS None Seen /LPF (None Seen); SQUAMOUS 0-3 Few /LPF (0-3)
[2020-07-19 19:22] LABS: URINE COLOR RED
[2020-07-19 19:23] LABS: URINE CLARITY HAZY
[2020-07-19 21:12] VITALS: BP 148/82
== END 2020-07-19 23:56 | disposition left against medical advice (07) ==
LOC: ER 18:51
PROVIDERS: Emergency Medicine
DX: R30.0 Dysuria (principal); R31.9 Hematuria, unspecified; R10.2 Pelvic and perineal pain; Z53.21 Procedure and treatment not carried out due to patient leaving prior to being seen by health care provider

== ENCOUNTER → 2020-07-20 | Outpatient (CLI) | payer OTHER | LOC: SJCVCIMAG 07:33 | PROVIDERS: ATTEND Internal Medicine Cardiovascular Disease | DX: I48.0 Paroxysmal atrial fibrillation (principal); I49.3 Ventricular premature depolarization ==

== ENCOUNTER → 2020-07-28 | Outpatient (CLI) | payer OTHER ==
[~2020-07-28] MED LIST changes: +BENICAR20 MG PO
== END ==
LOC: SJCVC 13:29
PROVIDERS: ATTEND Internal Medicine Cardiovascular Disease
DX: R07.89 Other chest pain (principal); I48.0 Paroxysmal atrial fibrillation; E78.00 Pure hypercholesterolemia, unspecified; I10 Essential (primary) hypertension; Z79.899 Other long term (current) drug therapy

== ENCOUNTER → 2020-08-08 | Outpatient (CLI) | payer OTHER ==
[~2020-08-08] VITALS: Ht 188 cm; Wt 118.2 kg
[2020-08-08 07:22] VITALS: BP 127/74
[2020-08-08 07:34] LABS: HEMATOCRIT 44.3 % (42.0-52.0); HEMOGLOBIN 14.7 gm/dL (14.0-18.0); MCHC 33.2 g/dL (28.0-37.0); MCV 93.6 fL (80.0-100.0); RBC 4.73 mil/uL (4.50-6.00); RDW 13.6 % (10.5-14.5)
[2020-08-08 07:42] LABS: CREATININE 1.2 mg/dL (0.7-1.3); POTASSIUM 4.3 mmol/L (3.5-5.1)
--- NOTE | 2020-08-08 08:08 | EKG ---
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 : 1955 Requested By: Tulio Valdez Order Number: [id number] MD: Kole Barnard Measurements Intervals [place] Rate: 79 P: 43 [place]: 183 QRS: 5 QRSD: 110 T: 29 QT: 408 QTc: 468 Interpretive Statements Sinus rhythm Normal tracing Compared to ECG 09/30/2019 08:30:02 Junctional rhythm no longer present Electronically Signed On 08-08-2020 8:08:38 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
--- NOTE | 2020-08-08 17:48 | CATHLAB ---
[facility] [place] [address] INVASIVE PROCEDURE REPORT Name: MANDEEP YE Room #: REG HOWIE PickensKeenan#: [id number] Admission: 08/08/20 Attend Phys: Tulio Valdez MD, Discharge: Date of : 51 Report #: [id number] THIS REPORT FOR: cc: Elijah Chen Steven F. DO Mancuso, Gerald M. MD [facility] ~ APPROVED REPORT Study performed: 08/08/2020 07:25:47 Patient Details The patient is a 65 year-old male Event Personnel Tulio Valdez Vamp Stitcher, Federica Batres RTR, Teresa Perez Jordan RTR Monitor, Liban Olivera RN statistical typist Performed Art Access - R femoral artery* 68595 Initial Mod Sed Same Phys/QHP Gr5y 226665 63888 Mod Sed Same Phys/QHP Ea 109814 Left Heart Cath w/or w/o Coronaries 7552870 [facility] Hemostasis w/ Mynx Abdominal Aortography 120647 Indication Dizziness and vertigo, Chest pain Procedure Narrative The Right Groin^ was infiltrated with 1% Lidocaine subcutaneous anesthesia. A PINNACLE 6FR Sheath #[id number] sheath was inserted into the RFA^. Coronary angiography was performed using coronary diagnostic catheters. The right coronary system was accessed and visualized with a JR4 catheter. The left coronary system was accessed and visualized with a JL4 catheter. The left ventricle was accessed and visualized with a PIGTAIL catheter. Left ventriculogram was performed in 30 degree projection. An aortogram of the abdominal aorta was performed. Pre-demployment femoral angiogram was performed . Closure device was deployed with a 6 Fr MYNX CONTROL 6F/7F L#[id number]. Hemostasis was obtained with manual pressure following sheath removal without any complications. The patient tolerated the procedure well and there were no complications associated with the procedure. There was no hematoma. Intraoperative Conscious Sedation [facility] [address] [address] INVASIVE PROCEDURE REPORT Name: MANDEEP YE Room #: REG Vasiliy#: [id number] Admission: 08/08/20 Attend Phys: Tulio Valdez, Discharge: Date of : 51 Report #: [id number] Sedation start time: 835 Case end Time: 904 Fentanyl 50 mcg Versed 1.5 mg Fluoro Time: 1.40 minutes Dose: DAP 5940.10 cGycm2 705 mGy Contrast Type and Amount: Omnipaque 105 ml Hemodynamics The aortic pressure is 124/70 mmHg with a mean of 91 mmHg. The left ventricular pressure is 135/8 mmHg with a mean of mmHg. The left ventricular end diastolic pressure is 21 mmHg. Conclusion #1. Normal left jugular size and systolic function EF 55 to 60%. #2 abdominal aortogram reveals significant tortuosity ectasia and a small infrarenal aortic aneurysm. Brisk flow this will best be evaluated by noninvasive imaging. #3 left main widely patent no occlusive disease giving rise to LAD and circumflex. #4 LAD is moderately diseased and proximal calcification is noted. 30 and 40% proximal and mid vessel with diffuse disease as this extends to the apex and a relatively small caliber distally. #5 circumflex OM is anatomically dominant vessel. First OM mildly diseased the main circumflex supplying the inferior wall is mild irregularity. No occlusive disease #6 small caliber nondominant right coronary artery no occlusive disease Recommendations and plan: Continue aggressive risk factor modification. No indication for coronary intervention. Will evaluate small infrarenal neck aneurysm with abdominal ultrasound and follow-up. <ELECTRONICALLY SIGNED> By: Tulio Valdez MD, FACC 08/08/201746 46 46 Tulio Valdez MD, FACC /INF
== END | disposition home or self-care (01) ==
LOC: CATH 06:20
PROVIDERS: ATTEND Internal Medicine Cardiovascular Disease
DX: R07.9 Chest pain, unspecified (principal); R42 Dizziness and giddiness; I25.10 Atherosclerotic heart disease of native coronary artery without angina pectoris; I71.4 Abdominal aortic aneurysm, without rupture; I10 Essential (primary) hypertension; I48.0 Paroxysmal atrial fibrillation; E78.5 Hyperlipidemia, unspecified; N40.0 Benign prostatic hyperplasia without lower urinary tract symptoms; G47.33 Obstructive sleep apnea (adult) (pediatric); K21.9 Gastro-esophageal reflux disease without esophagitis; E66.09 Other obesity due to excess calories; Z98.890 Other specified postprocedural states; Z79.899 Other long term (current) drug therapy; Z90.49 Acquired absence of other specified parts of digestive tract; Z85.59 Personal history of malignant neoplasm of other urinary tract organ; Z79.01 Long term (current) use of anticoagulants; Z88.0 Allergy status to penicillin; Z88.8 Allergy status to other drugs, medicaments and biological substances

== ENCOUNTER → 2020-11-27 | Outpatient (CLI) | payer OTHER | LOC: SJCVCIMAG 08:31 | PROVIDERS: ATTEND Internal Medicine Cardiovascular Disease | DX: I71.4 Abdominal aortic aneurysm, without rupture (principal); I48.0 Paroxysmal atrial fibrillation; I25.10 Atherosclerotic heart disease of native coronary artery without angina pectoris; I10 Essential (primary) hypertension; E78.00 Pure hypercholesterolemia, unspecified; I73.9 Peripheral vascular disease, unspecified; E78.2 Mixed hyperlipidemia; K21.9 Gastro-esophageal reflux disease without esophagitis; E78.5 Hyperlipidemia, unspecified; G47.33 Obstructive sleep apnea (adult) (pediatric); Z90.49 Acquired absence of other specified parts of digestive tract; Z98.890 Other specified postprocedural states; Z88.0 Allergy status to penicillin; Z88.8 Allergy status to other drugs, medicaments and biological substances; Z79.899 Other long term (current) drug therapy; Z86.16 Personal history of COVID-19; Z86.711 Personal history of pulmonary embolism; Z82.49 Family history of ischemic heart disease and other diseases of the circulatory system ==

== ENCOUNTER → 2021-02-01 | Outpatient (CLI) | payer OTHER | LOC: SJCVC 13:44 | PROVIDERS: ATTEND Internal Medicine Cardiovascular Disease | DX: R94.31 Abnormal electrocardiogram [ECG] [EKG] (principal); I49.1 Atrial premature depolarization; I48.0 Paroxysmal atrial fibrillation; I25.10 Atherosclerotic heart disease of native coronary artery without angina pectoris; N39.0 Urinary tract infection, site not specified; I10 Essential (primary) hypertension; K21.9 Gastro-esophageal reflux disease without esophagitis; G47.33 Obstructive sleep apnea (adult) (pediatric); Z90.49 Acquired absence of other specified parts of digestive tract; Z98.890 Other specified postprocedural states; Z88.0 Allergy status to penicillin; Z88.8 Allergy status to other drugs, medicaments and biological substances; Z79.899 Other long term (current) drug therapy; Z86.718 Personal history of other venous thrombosis and embolism; Z86.16 Personal history of COVID-19; Z82.49 Family history of ischemic heart disease and other diseases of the circulatory system ==

== ENCOUNTER → 2021-02-27 | Outpatient (CLI) | payer OTHER ==
--- NOTE | 2021-03-02 16:51 | SLE ---
[facility] [place] [address] POLYSOMNOGRAPHY STUDY Name: MANDEEP YE Room #: REG [facility]#: [id number] Admission: 02/27/21 Attend Phys: Carlos A Ferrer MD Discharge: Date of : 51 Report #: [id number] THIS REPORT FOR: cc: Elijah Chen,Jabari Malagon MD ~ DATE OF SERVICE: 02/27/2021 SLEEP STUDY ATTENDING PHYSICIAN: Dr. Carlos A Ferrer. The patient is a 65-year-old who weighs 260 pounds with a BMI of 33.4. The patient's [place] score was 16. The patient underwent split night study at [facility]. The patient also has been evaluated for Inspire therapy. During the night study, the patient spent 405 minutes in bed and slept for 330 minutes with a sleep efficiency of 81%. Sleep latency was 13.3 minutes with an absent REM latency. Sleep architecture showed increased stage 1 and stage 2 sleep; normal slow wave, and absent REM sleep. During the initial diagnostic portion of the study, the patient slept for 160 minutes. During that time, there was one obstructive apnea, no mixed apnea, 1 central apnea and 64 hypopneas. The patient's AHI was 24.8 per hour. REM sleep was not observed. Supine AHI was 37 per hour. EKG monitoring revealed an average heart rate of 83 beats per minute. A few PVCs observed. No sustained arrhythmias observed. PLMS were seen at an index of 8 per hour and none caused EEG arousals. The PLMs resolved while the patient remained on CPAP. Nocturnal oximetry study during the diagnostic portion revealed an average oxygen saturation of 92% with the lowest of 82%. 28 minutes were spent with oxygen saturation of less than 89%. The patient met the criteria for CPAP initiation. It was started at 5 cm water and titrated up to 10 cm of water. At the final pressure, the patient slept for 49 minutes. The patient did not have REM sleep. The patient did have a lateral sleep. The patient's AHI was reduced to 3.7 per hour and oxygen saturation remained above 91%. IMPRESSION: 1. Moderate obstructive sleep apnea with worsening during supine sleep. Absence of REM sleep can underestimate the severity of sleep apnea; total AHI of [facility] [address] [place] [address] POLYSOMNOGRAPHY STUDY Name: EPHRAIMMANDEEP DEIDRA Room #: REG CL Vasiliy#: [id number] Admission: 02/27/21 Attend Phys: Carlos A Ferrer MD Discharge: Date of : 51 Report #: [id number] 24.8 per hour with a supine AHI of 37 per hour. 2. Nocturnal hypoxia secondary to obstructive sleep apnea, but resolved with CPAP. 3. Mild PLMs without any significant EEG arousals. RECOMMENDATIONS: 1. CPAP at 10 cm water completely eliminated the patient's sleep apnea and should be used on a nightly basis. 2. Follow up in 4-6 weeks to assess compliance with CPAP and to document clinical improvement. 3. Weight loss is strongly advised. 4. Avoid ORACLE DEVELOPER depressants. 5. Cautioned regarding driving until symptoms of sleep apnea resolve with the use of CPAP. 6. The patient is also being evaluated for Inspire therapy. <ELECTRONICALLY SIGNED> By: Jabari Brown MD 03/02/21 1651 1501 1636 Jabari Brown MD /nt
== END ==
LOC: SLEEPLAB 10:04
PROVIDERS: ATTEND Otolaryngology Plastic Surgery within the Head & Neck
DX: G47.33 Obstructive sleep apnea (adult) (pediatric) (principal); G47.34 Idiopathic sleep related nonobstructive alveolar hypoventilation

== ENCOUNTER → 2021-03-28 | Outpatient (CLI) | payer OTHER ==
[2021-03-28 09:21] LABS: ABSOLUTE NEUTROPHILS 3.4 thou/uL (1.4-8.2); BASOPHILS 0.5 % (0.0-2.0); HEMATOCRIT 46.2 % (42.0-52.0); HEMOGLOBIN 15.6 gm/dL (14.0-18.0); LYMPHOCYTES 30.5 % (24.0-44.0); MCHC 33.7 g/dL (28.0-37.0); MONOCYTES 5.9 % (1.0-8.0); PLATELET COUNT 210 thou/uL (150-400); POLYS 62.1 % (36.0-66.0); RBC 5.03 mil/uL (4.50-6.00); WBC 5.5 thou/uL (4.0-11.0)
[2021-03-28 09:28] LABS: % SATURATION 23 % (20-39); IRON 60 ug/dL (65-175); TIBC 258 ug/dL (250-450)
[2021-03-28 09:30] LABS: ALBUMIN 3.4 g/dL (3.4-5.0); CREATININE 0.9 mg/dL (0.7-1.3); POTASSIUM 3.9 mmol/L (3.5-5.1); TOTAL BILIRUBIN 0.6 mg/dL (0.2-1.0); TOTAL PROTEIN 6.9 g/dL (6.4-8.2)
--- NOTE | 2021-03-29 08:22 | EKG ---
[address] [address] ELECTROCARDIOGRAM REPORT Name: MANDEEP YE Room #: REG CLI [facility]#: [id number] Admission: 03/28/21 Attend Phys: Carlos A Ferrer MD Discharge: Date of : 51 Report #: [id number] [facility] Test Date: 2021-03-28 Test Time: 08:53:13 Pat Name: MANDEEP YE Department: Room: Gender: M Educational Guidance Counselor: SBLEONELA : 1955 Requested By: Carlos A Ferrer Order Number: [id number] MD: Kobi Wilder Measurements Intervals [place] Rate: 80 P: 71 [place]: 160 QRS: -1 QRSD: 116 T: 30 QT: 408 QTc: 471 Interpretive Statements Sinus rhythm Nonspecific intraventricular conduction delay Compared to ECG 08/08/2020 07:33:24 Intraventricular conduction delay now present Electronically Signed On 03-29-2021 7:00:41 CDT by Kobi Wilder [email or web address] <ELECTRONICALLY SIGNED> By: Kobi Wilder MD, [facility] 03/29/21 0700 0853 0853 Kobi Wilder MD, FACKlever /EPI
== END ==
LOC: CV 08:21
PROVIDERS: ATTEND Otolaryngology Plastic Surgery within the Head & Neck
DX: G47.33 Obstructive sleep apnea (adult) (pediatric) (principal); G47.19 Other hypersomnia; K13.79 Other lesions of oral mucosa; R06.83 Snoring; Z78.9 Other specified health status; Z90.89 Acquired absence of other organs

== ENCOUNTER → 2021-05-16 | Outpatient (CLI) | payer OTHER | LOC: ULTRA 07:46 | PROVIDERS: ATTEND Neuromusculoskeletal Medicine & OMM | DX: E04.2 Nontoxic multinodular goiter (principal); E04.8 Other specified nontoxic goiter ==

== ENCOUNTER → 2021-05-30 | Outpatient (CLI) | payer OTHER ==
--- NOTE | 2021-06-07 14:07 | PATH ---
[facility] [address] [place] [address] PATHOLOGY RPT PROCEDURE Name: MANDEEP YE Room #: REG [facility] [id number] Admission: 05/30/21 Date of : 51 Discharge: Report #: [id number] Path Case #: [id number] Note [facility] Accession Number: [id number] TESTS RESULT FLAG UNITS REF RANGE LAB Clinician Provided Cytology Information No. of containers..01 Other (Miscellaneous) Source: [A] 01 ISTHMUS THYROID DIAGNOSIS: [A] 02 ISTHMUS THYROID POSITIVE FOR MALIGNANT CELLS. BETHESDA CATEGORY . PAPILLARY CARCINOMA. SPECIMEN CONSISTS OF ABUNDANT EPITHELIUM WITH PAPILLARY STRUCTURES, NUCLEAR PSEUDOINCLUSIONS AND GROOVES AND PSAMMOMA BODIES. Comment: [place]: Dr. Belem Brown. Findings are conveyed to Dr. Ferrer and his nurse Ms. Pedro (a voicemail message was left on the nurses line) in the morning of 06/06/21. Pathologist ICD10: 02 C73 Signed out by: Eunice Salinas MD, Pathologist NPI- [id number] Performed by: Dolores Negro, Epic Beacon Analyst ([facility]) Gross description: 01 25ML, CLEAR PINK, 2FX 2AD /LCS 06/04/2021 1756 Local FLAG LEGEND: L-Low Normal,H-High Normal,LL-Alert Low,HH-Alert High <-Panic Low,>-Panic High,A-Abnormal,AA-Critical Abnormal Performed at: [address] [place] [address] Serafin Galvan MD, [address] [address] Eunice Salinas MD, Specimen Comment: A duplicate report has been generated due to demographic updates. Performed at: [address], [place], [place] [address] [address] [address] PATHOLOGY RPT PROCEDURE Name: MANDEEP YE Room #: J LUIS Amanda#: [id number] Admission: 05/30/21 Date of : 51 Discharge: Report #: [id number] Path Case #: [id number] [place] Serafin Galvan [place] Phone: [phone]
== END | disposition home or self-care (01) ==
LOC: ULTRA 10:54
PROVIDERS: ATTEND Otolaryngology Plastic Surgery within the Head & Neck
DX: C73 Malignant neoplasm of thyroid gland (principal); I48.91 Unspecified atrial fibrillation; Z98.890 Other specified postprocedural states; Z79.899 Other long term (current) drug therapy; Z88.0 Allergy status to penicillin; Z88.8 Allergy status to other drugs, medicaments and biological substances; Z79.01 Long term (current) use of anticoagulants

== ENCOUNTER 2021-06-20 09:30 | Observation (INO) | payer OTHER ==
[~2021-06-20] VITALS: Ht 182.9 cm; Wt 113.4 kg
[~2021-06-20 09:30] MED LIST changes: +ASA81BEC PO; +DULOXETINE HCL30 MG PO; +IRON325 M1 PO; +NEURONTIN 300M300 M2 PO; +VITAMIN B-12500 MC5 PO; +VITAMIN D325 MC5 PO
[2021-06-20 10:32] VITALS: BP 143/73
[2021-06-20 10:54] LABS: HEMATOCRIT 49.5 % (42.0-52.0); HEMOGLOBIN 16.4 gm/dL (14.0-18.0); MCH 30.8 pg (26.0-34.0); MCHC 33.1 g/dL (28.0-37.0); MCV 93.1 fL (80.0-100.0); RBC 5.31 mil/uL (4.50-6.00); RDW 14.6 % (10.5-14.5)
[2021-06-20 11:09] LABS: CALCIUM 9.2 mg/dL (8.5-10.1); CREATININE 1.2 mg/dL (0.7-1.3); POTASSIUM 4.2 mmol/L (3.5-5.1)
[2021-06-20 11:18] LABS: ALBUMIN 3.8 g/dL (3.4-5.0); TOTAL BILIRUBIN 1.3 mg/dL (0.2-1.0); TOTAL PROTEIN 7.5 g/dL (6.4-8.2)
[2021-06-20] MEDS ORDERED: CLEOCIN HCL150 MG PO (15:29)
[2021-06-20] MEDS ORDERED: SYNTHROID100 MC1 PO (15:29)
[2021-06-20] MEDS ORDERED: CALTRATE-600 W1 EACH PO (15:29)
[2021-06-20 16:34] LABS: ALBUMIN 3.3 g/dL (3.4-5.0); MAGNESIUM 1.7 mg/dL (1.8-2.4)
[2021-06-20 17:59] VITALS: BP 134/85
[2021-06-20 18:00] VITALS: BP 143/84
--- NOTE | 2021-06-20 18:35 | NUR ---
PATIENT ARRIVED TO UNIT AT 1730 FROM OR. A&OX4. PATIENT IS SLEEPY BUT COOPERATIVE. DRESSING TO LEFT NECK INTACT. ICE PACK AT THE SITE. PATIENT COMPLAINED OF SORE THROAT. TYLENOL GIVEN. HEAD OF BED AT 30 DEGREES. DRAIN INTACT. WILL CONTINUE TO MONITOR.
[2021-06-20 20:55] VITALS: BP 143/86
--- NOTE | 2021-06-21 02:55 | NUR ---
ASSUMED PT CARE AT 1900.PT C/O HEADACHE,MANAGED WITH MED.DRSG TO HIS THROAT C/D/I WITH A JEANNIE DRAIN ATTACHED.NO OUTPUT NOTED IN THE JEANNIE DRAIN.PT CONT ON PO ABX OREDEERD,ABLE TO SWALLOW WELL.URINAL AT BEDSIDE WITH GOOD OUTPUT.ICE BAG TO HIS THRAOT.HOB ELEVATED AT 30DEGREES.PT ABLE TO MARY LOU SOFT FOOD.CALL LIGHT WITHIN REACH.
[2021-06-21 05:22] VITALS: BP 118/75
[2021-06-21 09:06] VITALS: BP 118/72
--- NOTE | 2021-06-21 09:11 | NUR ---
ASSESSMENT: CM REVIEWED CHART AND SPOKE WITH PATIENT AT THE BEDSIDE. PT IS ALERT AND ORIENTED X4. PT IS S/P THYROIDECTOMY. PT REPORTS THAT HE LIVES IN A HOUSE WITH HIS . PT REPORTS ABOUT 3 STEPS WITH HANDRAILS TO ENTER THE HOME AND NO STEPS HER HAS TO USE ONCE INSIDE. PT REPORTS BEING FULLY INDEPENDENT WITH ADLS AND AMBULATION. PT DENIES ANY PAST HX OF HH OR SNF. CM DISCUSSED ROLE. PT DOES NOT ANTICIPATE HAVING ANY NEEDS FROM CM PRIOR TO DISCHARGE. CM WILL CONTINUE TO FOLLOW TO ASSIST NEEDED.
[2021-06-21 09:28] VITALS: BP 118/72
--- NOTE | 2021-06-25 12:27 | O ---
[facility] [place] [address] OPERATIVE REPORT Name: MANDEEP YE Room #: 448-P [facility] Chelo MKeenanRKeenan#: [id number] Admission: 06/20/21 Attend Phys: Carlos A Ferrer MD Discharge: 06/21/21 Date of : 51 Report #: [id number] THIS REPORT FOR: cc: Elijah Chen,Elijah Paniagua,Carlos A Dow MD ~ cc: Elijah Chen MD, Chris Martínez MD DATE OF SERVICE: 06/20/2021 SURGEON: Carlos A Ferrer MD PREOPERATIVE DIAGNOSES: 1. Obstructive sleep apnea syndrome. 2. Intolerance to CPAP. 3. Papillary thyroid carcinoma. POSTOPERATIVE DIAGNOSES: 1. Obstructive sleep apnea syndrome. 2. Intolerance to CPAP. 3. Papillary thyroid carcinoma. OPERATIONS PERFORMED: 1. Drug-induced sleep endoscopy. 2. Total thyroidectomy for malignancy. 3. Level 6 neck dissection, bilateral. 4. Nerve integrity monitoring x 3 hours. INDICATIONS: The patient is a 65-year-old gentleman referred by his botany technician, Dr. Martínez, and his primary care physician, Dr. Chne, for otolaryngic evaluation initially for consideration of implantation of an Inspire device. He has had obstructive sleep apnea for many years and has worn CPAP, which he finds difficult to tolerate. In examination, the patient had a mass in the thyroid. This was worked up. Biopsy was done of a 1.3 cm nodule, positive for papillary carcinoma, and recommendations were made for total thyroidectomy with level 6 neck dissection. At the same time, drug-induced sleep endoscopy could be done. DESCRIPTION OF PROCEDURE: The patient was brought to the operating room and placed supine on the operating table. Anesthesia was then begun with propofol drip. In concert with anesthesia, a flexible nasopharyngoscope was introduced through the right naris and placed in the nasopharynx with looking down on the velum. As the patient drifted off to sleep, it became clear that the obstruction was an anterior-posterior collapse, not circumferential, making the patient a good candidate for an implantation Inspire device if he desires. Once this was documented, the video was made and the scope was removed. At that [facility] [address] [place] [address] OPERATIVE REPORT Name: MANDEEP YE Room #: 448-P [facility] Chelo Amanda#: [id number] Admission: 06/20/21 Attend Phys: Carlos A Ferrer MD Discharge: 06/21/21 Date of : 51 Report #: [id number] point, the patient was returned to anesthesia. Endotracheal tube was placed using a RetroSense Therapeuticstronic nerve integrity monitoring endotracheal tube. Once adequate anesthesia was achieved, shoulder roll was placed and neck was extended. He was prepped and draped for thyroidectomy. The planned incision was marked out on relaxed skin tension line above the manubrium and injected with 1% Xylocaine with 1:100,000 epinephrine. As a separate part of the procedure, the electrodes from the endotracheal tube were placed into the RetroSense Therapeuticstronic nerve integrity monitor. Separate ground electrodes were placed in the soft tissue overlying the sternum and contralateral shoulder. Electrode resistance and impedance were measured and found to be acceptable. Threshold and stimulus intensity parameters were set and the patient was monitored for the entirety of the case of approximately 3 hours in order to locate and protect the recurrent laryngeal nerve. He was then prepped and draped sterilely. The procedure began with an incision through skin and subcutaneous tissue and platysma. Subplatysmal flaps were elevated superiorly and inferiorly. Dissection was made down to the strap muscles. These were divided vertically in the midline and retracted laterally. Dissection began on the left side, beginning superiorly. Superior vessels were sequentially identified, clamped between Ligaclips and divided. The middle thyroid vein was taken down with Ligaclips. The inferior vessels were sequentially identified, clamped between Ligaclips and divided. The isthmus was dissected off the trachea and taken down with the Harmonic shear. The gland was rolled up onto the trachea. Dissection in the tracheoesophageal groove revealed the recurrent nerve in its usual anatomic position. This was tracked superiorly to the cricothyroid joint and Gibbons's ligament was taken down sharply. The superior parathyroid was attached to the capsule, dissected free and protected. The inferior parathyroid was running with the inferior thyroid artery and also protected. Once this was done, attention was turned to the contralateral right side. Again, on this side, superior vessels were clamped between Ligaclips and divided. Middle thyroid vein was taken down between Ligaclips and the inferior vessels were sequentially identified, clamped between Ligaclips and divided. This was rolled up onto the trachea. Dissection in the tracheoesophageal groove revealed the recurrent nerve in its usual anatomic position. This was tracked superiorly to the cricothyroid joint and Gibbons's ligament taken down sharply keeping the nerve in direct vision. The superior parathyroid on this side as well was attached to the capsule and preserved. Inferior parathyroid on this side was not seen. Once this gland was removed, attention was then turned to the level 6 neck dissection. Beginning on the right side, all lymph nodes were then dissected. The dissection included from carotid artery to carotid artery and from the cricoid down to the thymus. Working lateral to medial and superior to inferior, the soft tissue and lymph node bearing tissue were removed after the recurrent nerve was dissected down into the upper mediastinum for protection. This was [facility] [address] [place] [address] OPERATIVE REPORT Name: MANDEEP YE Room #: 448-P [facility] Chelo Amanda#: [id number] Admission: 06/20/21 Attend Phys: Carlos A Ferrer MD Discharge: 06/21/21 Date of : 51 Report #: [id number] divided in the midline and removed as a level 6 neck dissection. The inferior thyroid artery was clamped between the Ligaclips and divided inferiorly. Attention was then turned to the left side. Again, on this side, this was dissected in the same parameters. Recurrent nerve was dissected along the tracheoesophageal groove down to the upper mediastinum. Once identified, the soft tissue and the lymph node bearing tissue were dissected off of this and this was cleaned out completely. Again, on this side, the inferior thyroid artery was clamped between Ligaclips and divided. The wound was then irrigated. The hemostasis was assured with bipolar cautery. Both recurrent nerves were stimulated at the end of the case and found to be intact. Powdered Sang was placed opposite each cricothyroid joint. A 10-Danish Kenneth drain was placed through a separate stab incision, curled into the wound and connected to bulb suction. It was sutured in place with a 2-0 silk. The strap muscles were then closed with interrupted 3-0 Vicryl. 3-Vicryl was used to close the platysmal layer, 4-0 Vicryl deep dermal sutures and 5-0 running subcuticular Prolene on skin. Mastisol and Steri-Strips were applied followed by an Op-Site. No other dressing was used. The patient was returned to anesthesia, awake without difficulty, returned to recovery in good condition. Sponge and needle counts were correct. There were no complications and blood loss was about 30 mL. The patient will be watched until awake and stable. Presuming he does well, discharged to home with plans to follow up with me in 1 week. Written and verbal discharge instructions and emergency precautions have been given to his . DISCHARGE MEDICATIONS: Will include clindamycin 300 mg t.i.d. for 10 days, Tums 500 mg 2 tablets t.i.d., Synthroid 100 mcg 1 p.o. q. day, ondansetron 4 mg tablet 1 p.o. q. 4-6 hours p.r.n., hydrocodone/acetaminophen 7.5/325 1-2 q. 4-6 hours p.r.n. He was instructed on light activity, soft diet and water precautions. <ELECTRONICALLY SIGNED> By: Carlos A Ferrer MD 06/25/21 1227 1443 1702 Carlos A Ferrer MD /nt
--- NOTE | 2021-06-25 14:07 | PATH ---
[facility] [place] [address] PATHOLOGY RPT PROCEDURE Name: AUGUSTINE ADEN Room #: 448-P [facility] Chelo MAbdirahman#: [id number] Admission: 06/20/21 Date of : 51 Discharge: 06/21/21 Report #: [id number] Path Case #: [id number] [facility] Accession Number: [id number] . 01 Material submitted: . PART A: thyroid gland - LEFT THYROID LOBE AND ISTHMUS. Modifiers: left PART B: thyroid gland - RIGHT THYROID LOBE. Modifiers: right PART C: neck - RIGHT LEVEL SIX NECK DISSECTION. Modifiers: right PART D: neck - LEFT LEVEL SIX NECK DISECTION. Modifiers: left . 01 Clinician provided ICD-10: C73 . 01 Clinical history: . THYROIDECTOMY PAPILLARY THYROID CARCINOMA, OBSTRUCTIVE SLEEP APNEA . 02 Diagnosis: A. Thyroid, left thyroid lobe and isthmus, lobectomy: - PAPILLARY THYROID CARCINOMA, CLASSIC (USUAL/CONVENTIONAL VARIANT), MEASURING 2.0 CM IN GREATEST DIMENSION. - Margins free of involvement; closest margin is 0.5 mm away. - Background thyroid parenchyma showing multinodular hyperplasia. - Previous biopsy site changes identified. . Lymph nodes (4), left thyroid lobe and isthmus, lobectomy: - ONE PERITHYROIDAL LYMPH NODE SHOWING METASTATIC PAPILLARY CARCINOMA OF 4 EXAMINED (1/4). . B. Thyroid, right thyroid lobe, lobectomy: - PAPILLARY THYROID CARCINOMA, CLASSIC (USUAL/CONVENTIONAL VARIANT), MEASURING 1.2 CM IN GREATEST DIMENSION. - TUMOR IDENTIFIED WITH CAUTERY; PRESENT AT INKED MARGIN. - Background of multinodular hyperplasia. . Lymph node (1), right thyroid lobe, lobectomy: - One reactive lymph node; negative for malignancy (0/1). . C. Lymph node (1), right level six neck dissection: - One reactive lymph node; negative for malignancy (0/1). . D. Lymph nodes (2), left level six neck dissection: - Two reactive lymph nodes; negative for malignancy (0/2). . Parathyroid, left level six neck dissection: - Unremarkable 0.4 cm parathyroid tissue without any evidence of malignancy. . [address] [address] PATHOLOGY RPT PROCEDURE Name: AUGUSTINE ADEN Room #: 448-P MALATHI Amanda#: [id number] Admission: 06/20/21 Date of : 51 Discharge: 06/21/21 Report #: [id number] Path Case #: [id number] (IUV:quality checker; 06/22/2021) . . Surgical Pathology Cancer Case Summary . Protocol posting date: March 2017 . THYROID GLAND: . Select a single response unless otherwise indicated. . Procedure ___ Right lobectomy ___ Left lobectomy . Tumor Focality ___ Multifocal . Tumor Site ___ Right lobe ___ Left lobe . Tumor Size Greatest dimension (centimeters): 1.2 cm in the Right thyroid lobe and 2.0 cm in Left thyroid lobe . Histologic Type . Papillary Carcinomas ___ Papillary carcinoma, classic (usual, conventional) . Margins ___ Uninvolved by carcinoma Distance of invasive carcinoma from closest margin (millimeters): 0.5 mm for the left thyroid lobe Involved by carcinoma Site(s) of involvement: tumor identified with cautery at right thyroid lobe . Angioinvasion (Vascular Invasion) ___ Not identified . Lymphatic Invasion ___ Indeterminate . Perineural Invasion ___ Not identified . [address] [address] PATHOLOGY RPT PROCEDURE Name: AUGUSTINE ADEN DEIDRA Room #: 448-P [facility] Chel[place] Amanda#: [id number] Admission: 06/20/21 Date of : 51 Discharge: 06/21/21 Report #: [id number] Path Case #: [id number] Extrathyroidal Extension ___ Not identified . Regional Lymph Nodes . Lymph Node Examination . Number of Lymph Nodes Involved: 1 Specify Arline Levels ___ Level ___ Right and Left Other (specify): perithyroidal lymph nodes . Number of Lymph Nodes Examined: 8 Specify Arline Levels ___ Level - pretracheal, paratracheal and prelaryngeal/Delphian, perithyroidal (central compartment dissection) ___ Right and Left Other (specify): perithyroidal lymph nodes . Lymph Node Metastasis (required only if lymph nodes involved) . Size of Largest Metastatic Deposit (centimeters): 1.0 mm Extranodal Extension (ALEXIS) ___ Not identified . Pathologic Stage Classification (pTNM, AJCC 8th Edition) (Note M) . TNM Descriptors ___ m (multiple primary tumors) . For Papillary, Follicular, Poorly Differentiated, Hurthle Cell and Anaplastic Thyroid Carcinoma . Primary Tumor (pT) ___ pT1b: Tumor >1 cm but =2 cm in greatest dimension, limited to the thyroid . Regional Lymph Nodes (pN) pN0: No evidence of locoregional lymph node metastasis. . Distant Metastasis (pM) pMX: Unknown . Additional Pathologic Findings ___ Adenomatoid nodule(s) or nodular follicular disease (eg, nodular hyperplasia, goitrous thyroid) [facility] 06/25/2021 1154 Local . [address] [address] PATHOLOGY RPT PROCEDURE Name: AUGUSTINE ADEN Room #: 448-P MALATHI Amanda#: [id number] Admission: 06/20/21 Date of : 51 Discharge: 06/21/21 Report #: [id number] Path Case #: [id number] Comment: Examination shows a papillary thyroid carcinoma within the left lobe of the thyroid gland measuring 2.0 cm. The two separate nodules identified grossly in the right thyroid lobe show a papillary thyroid carcinoma as well; however, are indistinct from each other on microscopic examination. . Findings of this case are discussed with Dr. Carlos A Ferrer at approximately 5 p.m. on 06/22/2021. . (IUV:quality checker; 06/22/2021) . 02 Electronically signed: . Eunice Salinas MD, Pathologist NPI- [id number] . 01 Gross description: . A. The specimen is received in formalin, labeled "Augustine Aden, left thyroid lobe and isthmus". Received is a 13 g unoriented thyroid lobe measuring 4.9 x 3.3 x 1.5 cm in greatest dimensions. The isthmus is not grossly discernible. The capsule is slightly disrupted and roughened in appearance. The specimen is inked black. Sectioning reveals a light shelley, cystic to hemorrhagic nodule measuring 2.0 cm, which grossly abuts the inked capsule. Also identified is an ill-defined, white solid nodule measuring 1.0 cm, which grossly approaches the inked capsule. Both lesions are in opposite poles. The remainder of the lobe is comprised of normal red-brown thyroid parenchyma. The specimen is submitted entirely in cassettes A1 through A12. . B. The specimen is received in formalin, labeled "Augustine Aden, right thyroid lobe". Received is a 10 g unoriented thyroid lobe measuring 4.8 x 3.2 x 2.1 cm in greatest dimensions. The capsule is moderately disrupted and roughened in appearance. The specimen is inked blue. Sectioning reveals an ill-defined, solid pale shelley nodule measuring 0.8 cm in maximum dimensions, which grossly abuts the inked capsule. Immediately adjacent to the nodule, there is an encapsulated, partially calcified second nodule measuring 0.4 cm in maximum dimensions. Both nodules are located in the mid pole of the specimen. The remainder of the lobe is comprised of normal red-brown thyroid parenchyma. The specimen is submitted entirely in cassettes B1 through B12. . C. The specimen is received in formalin, labeled "Augustine Aden, right level six neck dissection". Received is a segment of yellow-shelley lobulated tissue measuring 3.6 x 1.8 x 1.1 cm in greatest dimensions. Dissection and palpation of the specimen reveals two possible lymph nodes measuring 0.2 and 0.3 cm in maximum dimensions. The possible lymph nodes are submitted intact in cassette C1. . D. The specimen is received in formalin, labeled "Augustine Aden, left [address] [address] PATHOLOGY RPT PROCEDURE Name: AUGUSTINE ADEN Room #: 448-P [facility] Chelo Amanda#: [id number] Admission: 06/20/21 Date of : 51 Discharge: 06/21/21 Report #: [id number] Path Case #: [id number] level six neck dissection". Received is a segment of yellow-shelley lobulated tissue measuring 2.3 x 1.8 x 0.8 cm in greatest dimensions. Dissection and palpation of the specimen reveals three readily identifiable lymph nodes ranging in size from 0.2-0.4 cm in maximum dimensions. The lymph nodes are submitted intact in cassette D1. (CAA; 06/21/2021) QA/[facility] 06/21/2021 1212 Local . 02 Pathologist provided ICD-10: C73, C77.0 . 02 CPT . 552254, 484758, 110777, 479805, 277665, 521009, [id number] Specimen Comment: A courtesy copy of this report has been sent to [phone] Specimen Comment: [id number] Specimen Comment: Report sent to / DR WINTERS Performed at: [address], [place], [place] [id number] MD Serafin Galvan MD Phone: [phone] Performed at: [address] [id number] MD Eunice Salinas MD Phone: [phone]
== END 2021-06-21 11:10 | disposition home or self-care (01) ==
LOC: OR 09:30 → TBA 09:31 → OR 13:07 → 4S 16:47 → OR 16:48 → 4S 16:48
PROVIDERS: ADMIT Otolaryngology Plastic Surgery within the Head & Neck; ATTEND Otolaryngology Plastic Surgery within the Head & Neck
DX: C73 Malignant neoplasm of thyroid gland (principal); G47.33 Obstructive sleep apnea (adult) (pediatric); I48.91 Unspecified atrial fibrillation; Z79.899 Other long term (current) drug therapy; Z99.89 Dependence on other enabling machines and devices; Z88.5 Allergy status to narcotic agent; Z88.0 Allergy status to penicillin; Z88.8 Allergy status to other drugs, medicaments and biological substances; Z90.49 Acquired absence of other specified parts of digestive tract; Z90.89 Acquired absence of other organs
CPT/HCPCS: 50010; 50101; 50386; 50403; 52190; 52220; 52287; 56524; 56526; 56528; 56760; 57006; 58902; 62110; 62900; 65131; 65134; 70005

== ENCOUNTER 2021-06-22 11:37 | Emergency (ER) | payer OTHER ==
[~2021-06-22] VITALS: Ht 188 cm; Wt 113.4 kg
[~2021-06-22 11:37] MED LIST changes: +CALTRATE-600 W1 EACH PO; +CLEOCIN HCL150 MG PO; +SYNTHROID100 MC1 PO
[2021-06-22 12:12] LABS: CALCIUM 9.2 mg/dL (8.5-10.1)
[2021-06-22 12:13] LABS: POTASSIUM 4.3 mmol/L (3.5-5.1)
[2021-06-22 12:15] LABS: HEMATOCRIT 44.2 % (42.0-52.0); HEMOGLOBIN 15.2 gm/dL (14.0-18.0); MCH 31.7 pg (26.0-34.0); MCHC 34.4 g/dL (28.0-37.0); MCV 92.1 fL (80.0-100.0); RBC 4.79 mil/uL (4.50-6.00); RDW 14.5 % (10.5-14.5); WBC 16.2 thou/uL (4.0-11.0)
[2021-06-22 12:19] LABS: MAGNESIUM 1.8 mg/dL (1.8-2.4); TOTAL BILIRUBIN 0.6 mg/dL (0.2-1.0); TOTAL PROTEIN 6.5 g/dL (6.4-8.2)
[2021-06-22 13:50] VITALS: BP 141/78
--- NOTE | 2021-06-22 14:55 | EKG ---
[place] [address] [facility] [place] [address] ELECTROCARDIOGRAM REPORT Name: MANDEEP YE [facility] [id number] Admission: 06/22/21 Attend Phys: Discharge: 06/22/21 Date of : 51 Report #: [id number] [facility] ED Test Date: 2021-06-22 Test Time: 11:59:27 Pat Name: MANDEEP YE Department: Room: Gender: M Outreach And Education Social Worker: mpamarquita : 1955 Requested By: Ne Ruggiero Order Number: [id number] MD: Kobi Wilder Measurements Intervals [place] Rate: 73 P: 63 [place]: 168 QRS: 3 QRSD: 115 T: 49 QT: 410 QTc: 452 Interpretive Statements Sinus rhythm Nonspecific intraventricular conduction delay Compared to ECG 03/28/2021 08:53:13 No significant changes Electronically Signed On 06-22-2021 14:55:08 CDT by Kobi Wilder [email or web address] <ELECTRONICALLY SIGNED> By: Kobi Wilder MD, [facility] 06/22/21 1455 1159 1159 Kobi Wilder MD, FACC /EPI
== END 2021-06-22 13:50 | disposition home or self-care (01) ==
LOC: ER 11:37
PROVIDERS: Nurse Practitioner Family
DX: R20.2 Paresthesia of skin (principal); I10 Essential (primary) hypertension; K21.9 Gastro-esophageal reflux disease without esophagitis; E78.5 Hyperlipidemia, unspecified; F32.9 Major depressive disorder, single episode, unspecified; Z90.49 Acquired absence of other specified parts of digestive tract; Z90.89 Acquired absence of other organs; Z79.899 Other long term (current) drug therapy; Z88.5 Allergy status to narcotic agent; Z88.0 Allergy status to penicillin; Z88.9 Allergy status to unspecified drugs, medicaments and biological substances

== ENCOUNTER → 2021-09-25 | Outpatient (CLI) | payer OTHER | LOC: SJCVC 15:32 | PROVIDERS: ATTEND Internal Medicine Cardiovascular Disease | DX: R94.31 Abnormal electrocardiogram [ECG] [EKG] (principal); I25.10 Atherosclerotic heart disease of native coronary artery without angina pectoris; I48.0 Paroxysmal atrial fibrillation; I10 Essential (primary) hypertension; E78.00 Pure hypercholesterolemia, unspecified; I71.4 Abdominal aortic aneurysm, without rupture; J32.9 Chronic sinusitis, unspecified; Z86.16 Personal history of COVID-19; N40.0 Benign prostatic hyperplasia without lower urinary tract symptoms; K21.9 Gastro-esophageal reflux disease without esophagitis; N20.0 Calculus of kidney; G47.33 Obstructive sleep apnea (adult) (pediatric); I26.99 Other pulmonary embolism without acute cor pulmonale; G62.9 Polyneuropathy, unspecified; K45.8 Other specified abdominal hernia without obstruction or gangrene; R65.20 Severe sepsis without septic shock; Z85.54 Personal history of malignant neoplasm of ureter; Z72.89 Other problems related to lifestyle; Z79.899 Other long term (current) drug therapy; Z88.5 Allergy status to narcotic agent; Z88.8 Allergy status to other drugs, medicaments and biological substances ==